=== PATIENT | male | born 1965 | race Caucasian/White ===

== ENCOUNTER → 2024-07-30 | Outpatient (CLI) | payer BC ==
[2024-07-30 16:35] VITALS: BP 153/82; PULSE 62; RESP 16; TEMP 98
== END ==
LOC: 3 N SLEEP 15:27
PROVIDERS: ATTEND Internal Medicine Critical Care Medicine
DX: G47.33 Obstructive sleep apnea (adult) (pediatric) (principal)
CPT/HCPCS: 99202

== ENCOUNTER 2024-10-20 07:47 | Inpatient (IN) | payer BC ==
--- NOTE | 2024-10-20 08:30 | ED ---
General Adult HPI - General Chief complaint: Shortness of Breath Stated complaint: Coughing up Blood Time Seen by Provider: 10/20/24 07:50 Source: patient Mode of arrival: ambulatory Limitations: no limitations - History of Present Illness Initial comments: Dictation was produced using [employer]ake dictation software. please excuse any grammatical, word or spelling errors. Chief Complaint: 59-year-old male with history of prostate disease hypertension presents to the ER for hemoptysis History of Present Illness: Patient 59-year-old male recently returned from a trip from [place] last week. Shortly after returning patient began having symptoms of cough. States that his cough is productive. Patient has been coughing profusely for the last several days. Today he had few bouts of hemoptysis. Patient is not taking anticoagulation medications. Was diagnosed with bronchitis at urgent care recently. Currently on steroids and antibiotics. Denies any history of blood clot. No lower extremity symptoms. The ROS documented in this emergency department record has been reviewed and confirmed by me. Those systems with pertinent positive or negative responses have been documented in the HPI. All other systems are other negative and/or noncontributory. - Related Data Home Medications Medication Instructions Recorded Confirmed Metoprolol Succinate [Kapspargo 100 mg PO DAILY 07/30/24 07/30/24 Sprinkle] allopurinoL 300 mg PO DAILY 07/30/24 07/30/24 lisinopriL 40 mg PO DAILY 07/30/24 07/30/24 Allergies Allergy/AdvReac Type Severity Reaction Status Date / Time No Known Allergies Allergy Verified 10/20/24 07:52 Review of Systems ROS Statement: Those systems with pertinent positive or pertinent negative responses have been documented in the HPI. ROS Other: All systems not noted in ROS Statement are negative. Past Medical History Past Medical History: Hypertension, Sleep Apnea/CPAP/BIPAP Additional Past Medical History / Comment(s): Gout History of Any Multi-Drug Resistant Organisms: None Reported Past Surgical History: Orthopedic Surgery Additional Past Surgical History / Comment(s): left knee surgery Past Psychological History: No Psychological Hx Reported Smoking Status: Never smoker Past Alcohol Use History: None Reported Past Drug Use History: None Reported - Past Family History Mother Family Medical History: Hypertension General Exam - General Exam Comments Initial Comments: PHYSICAL EXAM: General Impression: Alert and oriented x3, acute distress secondary coughing HEENT: Normocephalic atraumatic, extra-ocular movements intact, pupils equal and reactive to light bilaterally, mucous membranes moist. Cardiovascular: Heart regular rate and rhythm Chest: Able to complete full sentences, no retractions, no tachypnea Abdomen: abdomen soft, non-tender, non-distended, no organomegaly Musculoskeletal: Pulses present and equal in all extremities, no peripheral edema Motor: no focal deficits noted Neurological: CN II-XII grossly intact, no focal motor or sensory deficits noted Skin: Intact with no visualized rashes Psych: Normal affect and mood Limitations: no limitations Course Vital Signs 10/20/24 10/20/24 10/20/24 07:48 08:10 08:14 Temperature 97.9 F Pulse Rate 80 86 Respiratory 18 21 22 Rate Blood Pressure 163/77 141/74 O2 Sat by Pulse 97 98 Oximetry 10/20/24 09:48 Temperature Pulse Rate 74 Respiratory 22 Rate Blood Pressure 165/72 O2 Sat by Pulse 97 Oximetry Medical Decision Making - Medical Decision Making Was pt. sent in by a medical professional or institution (, PA, NANOTECHNICIAN, urgent care, hospital, or [facility]...) When possible be specific @ -No Did you speak to anyone other than the patient for history (EMS, parent, family, police, friend...)? What history was obtained from this source @ -No Did you review nursing and triage notes (agree or disagree)? Why? @ -I reviewed and agree with nursing and triage notes Were old charts reviewed (outside hosp., previous admission, EMS record, old EKG, old radiological studies, urgent care reports/EKG's, [facility] records)? Report findings @ -No old charts were reviewed Differential Diagnosis (chest pain, altered mental status, abdominal pain women, abdominal pain men, vaginal bleeding, musculoskeletal, weakness, fever, dyspnea, syncope, headache, dizziness, GI bleed, back pain, seizure, CVA, palpatations, mental health)? @ -Differential Dyspnea: Coronary syndrome, arrhythmia, tamponade, asthma, COPD, pulmonary embolism, pn eumonia, pneumothorax, pulmonary effusion, anaphylaxis, diabetic ketoacidosis, flailed chest, pulmonary contusion, diaphragmatic rupture, anemia, neuromuscular, this is not meant to be an all-inclusive list. EKG interpreted by me (3pts min.). @ -My EKG interpretation: Ventricular rate 79, sinus rhythm, OR 139, QRS 99, QTc 4 6. No OR prolongation, no QTC prolongation, no ST or T-wave changes noted. No old EKG for comparison overall, this EKG is unremarkable X-rays interpreted by me (1pt min.). @ -None done CT interpreted by me (1pt min.). @ -CT chest shows left lung infiltrate U/S interpreted by me (1pt. min.). @ -None done What testing was considered but not performed or refused? (CT, X-rays, U/S, labs)? Why? @ -None What meds were considered but not given or refused? Why? @ -None Was smoking cessation discussed for >3mins.? @ -No Were there social determinants of health that impacted care today? How? (Homelessness, low income, unemployed, alcoholism, drug addiction, transp ortation, low edu. Level, literacy, decrease access to med. care, senior living, rehab)? @ -No Was there de-escalation of care discussed even if they declined (Discuss DNR or withdrawal of care, Hospice)? DNR status @ -No What co-morbidities impacted this encounter? (DM, HTN, Smoking, COPD, CAD, Cancer, CVA, ARF, Chemo, Hep., AIDS, mental health diagnosis, sleep apnea, morbid obesity)? @ -None Was patient admitted / discharged? Hospital course, mention meds given and route, prescriptions, significant lab abnormalities, going to OR and other pertinent info. @ -59-year-old male presents with cough and hemoptysis. Vital signs stable. Laboratory evaluation obtained showed no leukocytosis. Rest of labs within acceptable limits. Viral testing is negative. CT of the chest with angiography was ordered. No pulmonary embolism noted however there was lung infiltrate to the left lung lazcano. Radiology interpretation was concern for atypical pneumonia including tuberculosis. Patient is afebrile with no significant constitutional symptoms along with no leukocytosis. He did not travel to an end emic area of tuberculosis. Patient nonetheless placed on airborne precautions will be admitted. Patient treated for acute community-acquired pneumonia. Patient well-appearing at the bedside Case discussed with hospitalist for admission Did you discuss the management of the patient with other professionals (professionals i.e. , PA, NANOTECHNICIAN, lab, RT, psych nurse, protective services social worker, vacuum tester cans, teacher, weapons electrical engineering officer, foster care case manager)? Give summary @ -See above Was critical care preformed (if so, how long)? @ -No Undiagnosed new problem with uncertain prognosis? @ -No Drug Therapy requiring intensive monitoring for toxicity (Heparin, Nitro, Insulin, Cardizem)? @ -No Were any procedures done? @ -No Diagnosis/symptom? Acute, or Chronic, or Acute on Chronic? Uncomplicated (without systemic symptoms) or Complicated (systemic symptoms)? @ -Acute pneumonia complicated by hemoptysis Side effects of treatment? @ -No Exacerbation, Progression, or Severe Exacerbation? @ -No Poses a threat to life or bodily function? How? (Chest pain, [place], [place], pneumonia, PE, COPD, DKA, ARF, appy, cholecystitis, CVA, Diverticulitis, Homicidal, Suicidal, threat to staff... and all critical care pts) @ -yes - Lab Data Result diagrams: 10/20/24 08:26 10/20/24 08:26 Lab Results 10/20/24 10/20/24 10/20/24 Range/Units 08:26 08:26 08:26 WBC 5.92 (4.50-10.00) 10*3/uL RBC 4.07 L (4.40-5.60) 10*6/uL Hgb 12.9 L (13.0-17.0) g/dL Hct 36.4 L (39.6-50.0) % MCV 89.4 (80.0-97.0) fL MCH 31.7 (27.0-32.0) pg MCHC 35.4 (32.0-37.0) g/dL Plt Count 132 L (140-440) 10*3/uL MPV 10.4 (9.5-12.2) fL Immature Gran % (Auto) 0.3 % Neutrophils % 68.5 % Lymphocytes % 20.1 % Monocytes % 10.6 % Eosinophils % 0.2 % Basophils % 0.3 % Immature Gran # 0.02 (0.00-0.04) 10*3/uL Neutrophils # 4.05 (1.80-7.70) 10*3/uL Lymphocytes # 1.19 (0.90-5.00) 10*3/uL Monocytes # 0.63 (0.20-1.00) 10*3/uL Eosinophils # 0.01 L (0.04-0.35) 10*3/uL Basophils # 0.02 (0.00-0.10) 10*3/uL Immature Plt Fraction 3.7 (1.1-6.1) % PT 10.1 (10.0-12.5) sec INR 0.9 (<1.2) APTT 23.7 (22.0-30.0) sec Sodium 140 (137-145) mmol/L Potassium 3.8 (3.5-5.1) mmol/L Chloride 109 H (98-107) mmol/L Carbon Dioxide 21 L (22-30) mmol/L Anion Gap 10 mmol/L BUN 21 H (9-20) mg/dL Creatinine 1.08 (0.66-1.25) mg/dL Est GFR (CKD-EPI)AfAm 85 (>60 ml/min/1.73 sqM) Est GFR (CKD-EPI)NonAf 74 (>60 ml/min/1.73 sqM) Glucose 123 H (74-99) mg/dL Calcium 8.4 (8.4-10.2) mg/dL Magnesium 1.8 (1.6-2.3) mg/dL Total Bilirubin 0.5 (0.2-1.3) mg/dL AST 26 (17-59) U/L ALT 31 (4-49) U/L Alkaline Phosphatase 77 (38-126) U/L Troponin I (0.000-0.034) ng/mL Total Protein 6.2 L (6.3-8.2) g/dL Albumin 3.8 (3.5-5.0) g/dL Influenza Type A (PCR) (Not Detectd) Influenza Type B (PCR) (Not Detectd) RSV (PCR) (Not Detectd) SARS-CoV-2 (PCR) (Not Detectd) 10/20/24 10/20/24 Range/Units 08:26 08:27 WBC (4.50-10.00) 10*3/uL RBC (4.40-5.60) 10*6/uL Hgb (13.0-17.0) g/dL Hct (39.6-50.0) % MCV (80.0-97.0) fL MCH (27.0-32.0) pg MCHC (32.0-37.0) g/dL Plt Count (140-440) 10*3/uL MPV (9.5-12.2) fL Immature Gran % (Auto) % Neutrophils % % Lymphocytes % % Monocytes % % Eosinophils % % Basophils % % Immature Gran # (0.00-0.04) 10*3/uL Neutrophils # (1.80-7.70) 10*3/uL Lymphocytes # (0.90-5.00) 10*3/uL Monocytes # (0.20-1.00) 10*3/uL Eosinophils # (0.04-0.35) 10*3/uL Basophils # (0.00-0.10) 10*3/uL Immature Plt Fraction (1.1-6.1) % PT (10.0-12.5) sec INR (<1.2) APTT (22.0-30.0) sec Sodium (137-145) mmol/L Potassium (3.5-5.1) mmol/L Chloride (98-107) mmol/L Carbon Dioxide (22-30) mmol/L Anion Gap mmol/L BUN (9-20) mg/dL Creatinine (0.66-1.25) mg/dL Est GFR (CKD-EPI)AfAm (>60 ml/min/1.73 sqM) Est GFR (CKD-EPI)NonAf (>60 ml/min/1.73 sqM) Glucose (74-99) mg/dL Calcium (8.4-10.2) mg/dL Magnesium (1.6-2.3) mg/dL Total Bilirubin (0.2-1.3) mg/dL AST (17-59) U/L ALT (4-49) U/L Alkaline Phosphatase (38-126) U/L Troponin I 0.016 (0.000-0.034) ng/mL Total Protein (6.3-8.2) g/dL Albumin (3.5-5.0) g/dL Influenza Type A (PCR) Not Detected (Not Detectd) Influenza Type B (PCR) Not Detected (Not Detectd) RSV (PCR) Not Detected (Not Detectd) SARS-CoV-2 (PCR) Not Detected (Not Detectd) Disposition Clinical Impression: Pneumonia Disposition: ADMITTED IP TO THIS HOSP Condition: Fair Referrals: Morris Ortega MD [Primary Care Provider] - 1-2 days Decision Time: 10:03
[2024-10-20 08:43] LABS: Basophils # (A) 0.02 10*3/uL (0.00-0.10); Basophils % (A) 0.3 %; Eosinophils # (A) 0.01 10*3/uL (0.04-0.35); Eosinophils % (A) 0.2 %; HCT 36.4 % (39.6-50.0); HGB 12.9 g/dL (13.0-17.0); Immature Platelet Fraction 3.7 % (1.1-6.1); Lymphocytes # (A) 1.19 10*3/uL (0.90-5.00); Lymphocytes % (A) 20.1 %; MCH 31.7 pg (27.0-32.0); MCHC 35.4 g/dL (32.0-37.0); MCV 89.4 fL (80.0-97.0); Mean Platelet Volume 10.4 fL (9.5-12.2); Monocytes # (A) 0.63 10*3/uL (0.20-1.00); Monocytes % (A) 10.6 %; Neutrophils # (A) 4.05 10*3/uL (1.80-7.70); Neutrophils % (A) 68.5 %; Platelet Count 132 10*3/uL (140-440); RBC 4.07 10*6/uL (4.40-5.60); RDW 13.9 % (11.5-14.5); WBC 5.92 10*3/uL (4.50-10.00)
[2024-10-20 08:53] LABS: ALT 31 U/L (4-49); AST 26 U/L (17-59); African American GFR (CKD) 85 (>60 ml/min/1.73 sqM); Albumin 3.8 g/dL (3.5-5.0); Alkaline Phosphatase 77 U/L (38-126); Anion Gap 10 mmol/L; Blood Urea Nitrogen 21 mg/dL (9-20); Calcium 8.4 mg/dL (8.4-10.2); Carbon Dioxide 21 mmol/L (22-30); Chloride 109 mmol/L (98-107); Glucose 123 mg/dL (74-99); Magnesium 1.8 mg/dL (1.6-2.3); Non-African American GFR(CKD) 74 (>60 ml/min/1.73 sqM); Potassium 3.8 mmol/L (3.5-5.1); Sodium 140 mmol/L (137-145); Total Bilirubin 0.5 mg/dL (0.2-1.3); Total Protein 6.2 g/dL (6.3-8.2)
[2024-10-20 09:03] LABS: INR 0.9 (<1.2); Partial Thromboplastin Time 23.7 sec (22.0-30.0); Prothrombin Time 10.1 sec (10.0-12.5)
--- NOTE | 2024-10-20 09:08 | CT ---
EXAMINATION TYPE: CT angio chest DATE OF EXAM: 10/20/2024 8:53 AM COMPARISON: None. CLINICAL INDICATION: Male, 59 years old with history of hemoptysis, recent travel, Hemoptysis, recent travel, TECHNIQUE: CT of the chest is performed on a spiral scan at 2 mm thick sections. Study is performed with intravenous contrast timed for evaluation for pulmonary embolism. This will limit additional po rtions of the evaluation. 10mm MIP images reconstructed by the technologist are reviewed on the comp uter in the coronal and sagittal planes. Contrast used:100 ml mL of Isovue 370 without and with IV Contrast, (none if empty) Oral contrast used: (none if empty) CT DLP: 729.1 mGycm, Automated exposure control for dose reduction was used. FINDINGS: No persistent filling defects are evident to suggest an acute pulmonary embolism. No mediastinal or hilar adenopathy enlarged by CT criteria is evident. The ascending aorta diameter at the level of the main pulmonary artery is 3.3 cm. The main pulmonary artery diameter at the bifurcation is 2.6 cm. There is patchy irregular infiltrate in the left upper lobe. Correlate for pneumonia. Consider atypic al pneumonia. Correlate with the recent travel history. Correlate with the travel history for possibl e TB exposure. There is some minimal subtle infiltrate scattered within the right lower lobe. Some mild lingular inf iltrate is present. Moderate coronary artery calcifications present. Limited CT sections were through the upper abdomen. Small hiatal hernia is present. IMPRESSION: 1. No acute pulmonary embolism. 2. Patchy left upper lung field infiltrate. Correlate for pneumonia. Consider atypical pneumonia. 3. Small hiatal hernia [facility], , 10/20/2024 9:06 AM
[2024-10-20 09:16] LABS: Influenza A Not Detected (Not Detectd); Influenza B Not Detected (Not Detectd); RSV Not Detected (Not Detectd)
[2024-10-20] MEDS ORDERED: PNEUMONIA PROTOCOL UTILIZED 1 EACH MISC PO PRN (10:07)
[2024-10-20] MEDS: cefTRIAXone IN SWFI 1,000 MG/10 ML SYRINGE IVP STA (11:35)
[2024-10-20] MEDS: SODIUM CHLORIDE 0.9% 1,000 ML IV SCH (11:36)
[2024-10-20] MEDS: AZITHROMYCIN 500 MG in SODIUM CHLORIDE 0.9% 250 ML IVPB STA (11:36)
--- NOTE | 2024-10-20 11:39 | P.HPIM ---
History of Present Illness H&P Date: 10/20/24 History of Presenting Illness: Patient is a very pleasant 59-year-old male with a past medical history of hypertension, BPH, gout, and obstructive sleep apnea CPAP dependent nightly. He presented to the emergency department with a chief complaint of shortness of breath and hemoptysis. Patient reports he just returned from an 8 day trip to [place] last week and shortly after returning on Monday he began developing auditory symptoms since shortness of breath. Patient reports the symptoms progressively worsened and on Monday he went to the urgent care for evaluation. Patient reports he was started on a Augmentin, steroids, and inhaler with no improvement. Patient reports he has had subjective fevers, chills, diaphoresis, and productive cough. Patient reports today that shortness of breath has worsened and has been accompanied by multiple episodes of hemoptysis so he came to the hospital for further evaluation. Patient reports that his also has similar symptoms but that her started after he developed his and has not reached the severity of his as of yet. He denies having any known exposure to TB, reports staying in a condo in [place], and visiting/exploring's a [place]. Upon arrival to our facility, patient underwent evaluation in the emergency department vital signs upon arrival show blood pressure 163/77, heart rate 80, respiratory rate 18,. Temp 97.9 F, and SpO2 of 97% on room air. EKG showing normal sinus rhythm at 79 bpm with nonspecific T wave abnormality in lateral/inferior leads. Labs completed and reviewed. CBC showing bicytopenia with hemoglobin of 12.9 and platelet count of 132. WBC count is normal at 5.92. Coagulation profile normal findings. BMP showing non-anion gap metabolic acidosis with chloride of 109, bicarb of 21, and anion gap of 10. Mild prerenal azotemia with BUN of 21. Blood glucose 123. Calcium 8.4. Magnesium 1.8. Liver profile unremarkable. Troponin 0.016. Influenza A, influenza B, RSV, and COVID PCR negative. CTA chest negative for pulmonary emboli showing patchy left upper lung field infiltrate concerning for pneumonia, likely atypical pneumonia. Review of systems: Pertinent positives and negatives as discussed in HPI, a complete review of systems was performed and all other systems are negative. Physical exam: Vital signs reviewed and stable. General: Nontoxic, no distress and appears stated age. Derm: Skin warm and dry, normal coloration for ethnicity. Head: Atraumatic, normocephalic and symmetric. Eyes: EOM's intact, no lid lag, and anicteric sclera Mouth: no lip lesions, mucus membranes moist Cardiovascular: regular rate and rhythm with normal S1S2, no murmur, positive po sterior tibial pulses bilaterally, and cap refill < 2 seconds. Lungs: Respirations even, regular, and unlabored on room air. Lungs diminished with diffuse rhonchi left upper lobe and soft expiratory wheezes bilaterally. Abdominal: soft, nontender to palpation, no guarding, no appreciable organome davie Ext: ROM intact. No gross muscle atrophy, no edema, no contractures Neuro: Speech clear, face symmetrical and CN II-XII grossly intact with no noted focal neuro deficits Psych: Alert and oriented to person, place, time, and situation. Appropriate and pleasant affect. Assessment and Plan of Care: Left upper lobe pneumonia, suspected atypical pneumonia infection -Secondary to recent travel to [place] and hemoptysis, we will need to rule out streptococcal pneumonia, staph aureus pneumonia, mycoplasma pneumonia, histoplasmosis, Legionella, and pulmonary TB -CTA chest negative for pulmonary emboli showing patchy left upper lung field infiltrate concerning for pneumonia, likely atypical pneumonia. -Airborne precautions in place and to continue pending further recommendations from pulmonology. -Order placed for Streptococcus urine antigen and histoplasmosis urine antigen to be obtained -Pulmonary consulted -Oxygenation to be administered and titrated as needed to maintain SPO2 equal to or greater than 92% -IV antibiotics with Rocephin 2 g daily and Zithromax 500 mg daily pending furt her results and recommendations from pulmonology. -Telemetry monitoring. -Monitor pulse-oximetry -Duonebs 4 times daily and as needed for SOB and/or wheezing -Incentive Spirometry -Sputum culture Hypertension -Monitor vital signs and continue daily medication regimen with metoprolol 100 mg daily,-and lisinopril 40 mg daily Gout - Although not updated on [employer] rec patient does report taking allopurinol 300 mg daily.. BPH -Patient reports recently started on Flomax 0.4 mg daily. Obstructive sleep apnea -Continue home CPAP nightly and while napping. Data and imaging reviewed: As stated above in HPI CODE STATUS: Full code DVT prophylaxis: Lovenox Discussed with: Patient, patient's , and ED physician Anticipated discharge date: Pending clinical course Anticipated discharge place: Home Patient was seen independently by Nurse Practitioner. This document was prepared using [employer] dictation software. Please allow for errors in shoe singer while rare they do occur. Quincy Cui NP rendered care for this patient independently, reviewed the findings and plan as documented in the note above and agree with plan. I did not physically speak with or examine the patient on this date. Past Medical History Past Medical History: Hypertension, Sleep Apnea/CPAP/BIPAP Additional Past Medical History / Comment(s): Gout History of Any Multi-Drug Resistant Organisms: None Reported Past Surgical History: Orthopedic Surgery Additional Past Surgical History / Comment(s): left knee surgery Past Psychological History: No Psychological Hx Reported Smoking Status: Never smoker Past Alcohol Use History: None Reported Past Drug Use History: None Reported - Past Family History Mother Family Medical History: Hypertension Medications and Allergies Home Medications Medication Instructions Recorded Confirmed Type lisinopriL 40 mg PO DAILY 07/30/24 10/20/24 History Albuterol Inhaler [Ventolin Hfa 2 puff INHALATION RT-Q4H PRN 10/20/24 10/20/24 History Inhaler] Amoxic-Pot Clav 875-125Mg 1 tab PO Q12HR 10/20/24 10/20/24 History [Augmentin 875-125] Ergocalciferol (Vitamin D2) 1,250 mcg PO SA 10/20/24 10/20/24 History [Drisdol (GEQ) 1,250 MCG (50,000 IU)] Metoprolol Succinate (ER) [Toprol 100 mg PO DAILY 10/20/24 10/20/24 History Xl] methylPREDNISolone Dose Pack See Taper PO DIRECTED 10/20/24 10/20/24 History [Medrol Dose Pack] Allergies Allergy/AdvReac Type Severity Reaction Status Date / Time No Known Allergies Allergy Verified 10/20/24 12:00 Physical Exam Vitals: Vital Signs Temp Pulse Resp BP Pulse Ox 10/20/24 09:48 74 22 165/72 97 10/20/24 08:14 22 10/20/24 08:10 86 21 141/74 98 10/20/24 07:48 97.9 F 80 18 163/77 97 Intake and Output 10/19/24 10/20/24 10/20/24 22:59 06:59 14:59 Other: Weight 122.47 kg Results CBC & Chem 7: 10/20/24 08:26 10/20/24 08:26 Labs: Abnormal Lab Results - Last 24 Hours (Table) 10/20/24 10/20/24 Range/Units 08:26 08:26 RBC 4.07 L (4.40-5.60) 10*6/uL Hgb 12.9 L (13.0-17.0) g/dL Hct 36.4 L (39.6-50.0) % Plt Count 132 L (140-440) 10*3/uL Eosinophils # 0.01 L (0.04-0.35) 10*3/uL Chloride 109 H (98-107) mmol/L Carbon Dioxide 21 L (22-30) mmol/L BUN 21 H (9-20) mg/dL Glucose 123 H (74-99) mg/dL Total Protein 6.2 L (6.3-8.2) g/dL
[2024-10-20] MEDS ORDERED: IPRATROPIUM-ALBUTEROL 3 ML NEB INHALATION PRN (11:40)
[2024-10-20] MEDS: IPRATROPIUM-ALBUTEROL 3 ML NEB INHALATION SCH (12:19)
--- NOTE | 2024-10-20 12:51 | P.CNPUL ---
History of Present Illness Consult date: 10/20/24 Requesting physician: Dylan Matos Reason for consult: dyspnea, cough, abnormal CXR/CT Chief complaint: Shortness of breath, cough, congestion History of present illness: This is a very pleasant 59-year-old male patient with a known history of gout, hypertension, obesity, obstructive sleep apnea on CPAP. 2 to 3 weeks ago the patient developed a dry nonproductive cough and felt it may be due to the increased dose of his lisinopril. After that he traveled to [facility] for [address] days[address] On the way home he had a layover in [place] where he spent the night in a hotel prior to arriving in [place]. Over the past week he had noted increasing shortness of breath, cough and congestion. He did have some night sweats. No nausea, vomiting or diarrhea. No sick contacts. He was given a Medrol Dosepak and Augmentin in the outpatient setting without much improvement. He presented to the emergency room this morning. CT angiogram ruled out pulmonary embolism. There is a patchy left upper lobe lung field infiltrate suspicious for pneumonia. White count 5.9. Hemoglobin 12.9. Platelets 132. Sodium 140. Potassium 3.8. Bicarb 21. BUN 21. Creatinine 1.08. Glucose 123. Troponins negative x 2. Viral screen negative for influenza A/B, RSV, COVID. He is seen today in consultation on the regular medical floor. He is currently on AFB precautions, secondary to a comment by the radiologist suggesting possible TB exposure while traveling. No previous history of tuberculosis. He is awake and alert in no acute distress. Maintaining good O2 saturations in the 90s on room air oxygen. Afebrile. Hemodynamically stable. He does have a productive cough of dark brown sputum some blood-tinged sputum. Review of Systems REVIEW OF SYSTEMS: CONSTITUTIONAL: Denies any recent significant weight loss or weight gain. EYES: Denies change in vision. EARS, NOSE, MOUTH, THROAT: Denies headaches, denies sore throat. CARDIOVASCULAR: Denies chest pain, palpitations or syncopal episodes. RESPIRATORY: Positive for shortness of breath, cough, congestion and hemoptysis. GASTROINTESTINAL: Denies change in appetite, denies abdominal pain GENITOURINARY: Denies hematuria, denies infections. MUSKULOSKELETAL: Denies pain, denies swelling. INTEGUMENTARY: Denies rash, denies eczema. NEUROLOGICAL: Denies recent memory loss, no recent seizure activity. PSYCHIATRIC: Denies anxiety, denies depression. HEMATOLOGIC/LYMPHATIC: Denies anemia, denies enlarged lymph nodes. Past Medical History Past Medical History: Hypertension, Sleep Apnea/CPAP/BIPAP Additional Past Medical History / Comment(s): Gout History of Any Multi-Drug Resistant Organisms: None Reported Past Surgical History: Orthopedic Surgery Additional Past Surgical History / Comment(s): left knee surgery Past Psychological History: No Psychological Hx Reported Smoking Status: Never smoker Past Alcohol Use History: None Reported Past Drug Use History: None Reported - Past Family History Mother Family Medical History: Hypertension Medications and Allergies Home Medications Medication Instructions Recorded Confirmed Type lisinopriL 40 mg PO DAILY 07/30/24 10/20/24 History Albuterol Inhaler [Ventolin Hfa 2 puff INHALATION RT-Q4H PRN 10/20/24 10/20/24 H istory Inhaler] Amoxic-Pot Clav 875-125Mg 1 tab PO Q12HR 10/20/24 10/20/24 History [Augmentin 875-125] Ergocalciferol (Vitamin D2) 1,250 mcg PO SA 10/20/24 10/20/24 History [Drisdol (GEQ) 1,250 MCG (50,000 IU)] Metoprolol Succinate (ER) [Toprol 100 mg PO DAILY 10/20/24 10/20/24 History Xl] methylPREDNISolone Dose Pack See Taper PO DIRECTED 10/20/24 10/20/24 History [Medrol Dose Pack] Allergies Allergy/AdvReac Type Severity Reaction Status Date / Time No Known Allergies Allergy Verified 10/20/24 12:00 Physical Exam Vitals: Vital Signs Temp Pulse Resp BP Pulse Ox 10/20/24 11:49 64 20 160/80 96 10/20/24 09:48 74 22 165/72 97 10/20/24 08:14 22 10/20/24 08:10 86 21 141/74 98 10/20/24 07:48 97.9 F 80 18 163/77 97 Intake and Output 10/19/24 10/20/24 10/20/24 22:59 06:59 14:59 Other: Weight 122.47 kg GENERAL EXAM: Alert, active, pleasant, obese 59-year-old male, on room air oxygen, comfortable in no apparent distress. HEAD: Normocephalic. EYES: Normal reaction of pupils, equal size. NOSE: Clear with pink turbinates. THROAT: No erythema or exudates. NECK: No masses, no JVD. CHEST: No chest wall deformity. LUNGS: Equal air entry with few scattered rhonchi over the right lung. CVS: S1 and S2 normal with no audible murmur, regular rhythm. ABDOMEN: No hepatosplenomegaly, normal bowel sounds, no guarding or rigidity. SPINE: No scoliosis or deformity SKIN: No rashes CENTRAL NERVOUS SYSTEM: No focal deficits, tone is normal in all 4 extremities. EXTREMITIES: There is no peripheral edema. No clubbing, no cyanosis. Peripheral pulses are intact. Results - Laboratory Findings CBC and BMP: 10/20/24 08:10/20/24 08:26 PT/INR, D-dimer PT 10.1 sec (10.0-12.5) 10/20/24 08: INR 0.9 (<1.2) 10/20/24 08:26 Abnormal lab findings: Abnormal Labs 10/20/24 10/20/24 08:26 08:26 RBC 4.07 L Hgb 12.9 L Hct 36.4 L Plt Count 132 L Eosinophils # 0.01 L Chloride 109 H Carbon Dioxide 21 L BUN 21 H Glucose 123 H Total Protein 6.2 L - Diagnostic Findings CT scan - chest: image reviewed Assessment and Plan Assessment: Acute left upper lobe community-acquired pneumonia however recently traveled to [facility] and other sources are under investigation Recent travel to [facility], spent 1 night in [place] prior to arriving back in [place] Hypertension Gout Obstructive sleep apnea Obesity Lifelong non-smoker Plan: The patient was seen and evaluated CT angiogram, labs and medications reviewed Continue ceftriaxone and azithromycin Check for Legionella antigen Check mycoplasma IgM Add albuterol HFA as needed Check a sputum culture Discontinue DuoNeb ventilations Lovenox for DVT prophylaxis Currently stable on room air oxygen To remain in AFB precautions for now We will continue to follow and make further recommendations based on his clinical status I have personally seen and examined the patient, performed the documentation and the assessment and plan as written. Number of minutes spent on the visit: 20 Dictation was produced using [employer] software. Please excuse any grammatical, word or spelling errors. Time with Patient: Greater than 30
[2024-10-20] MEDS: methylPREDNISolone 4 MG TAB TAPER PO SCH (14:41)
[2024-10-20] MEDS: lisinopriL 20 MG TAB PO STA (15:31)
[2024-10-20] MEDS: TAMSULOSIN 0.4 MG CAP.ER.24H PO SCH (17:35)
[2024-10-21] MEDS: lisinopriL 20 MG TAB PO SCH (08:27)
[2024-10-21] MEDS: METOPROLOL SUCCINATE (ER) 100 MG TAB.ER.24H PO SCH (08:27)
[2024-10-21] MEDS: allopurinoL 300 MG TAB PO SCH (08:28)
[2024-10-21] MEDS: AZITHROMYCIN 500 MG TAB PO SCH (08:28)
[2024-10-21] MEDS: ENOXAPARIN 40 MG/0.4 ML SYRINGE SQ SCH (08:28)
[2024-10-21] MEDS ORDERED: HEPARIN SODIUM 1,000 UN/ML (10ML VL) IV PRN (08:45)
[2024-10-21] MEDS ORDERED: DILTIAZEM 5 MG/ML 5 ML VIAL IVP STA (08:45)
[2024-10-21] MEDS ORDERED: DILTIAZEM 125 MG in DEXTROSE 5% IN WATER 100 ML IV SCH (08:45)
--- NOTE | 2024-10-21 09:10 | XR ---
EXAMINATION TYPE: XR chest 1V DATE OF EXAM: 10/21/2024 6:42 AM COMPARISON: None. CLINICAL INDICATION: Male, 59 years old with history of pneumonia, TECHNIQUE: XR chest 1V view(s) obtained. FINDINGS: The heart size is normal. The pulmonary vasculature is normal. Some minimal tenting along the left cardiac apex may be present. Correlate for atelectasis. There is a left upper lobe infiltrate. Correlate for pneumonia. IMPRESSION: 1. Left upper lobe infiltrate. Correlate for pneumonia. Follow-up recommended. [facility], , 10/21/2024 9:07 AM
[2024-10-21 09:18] LABS: Basophils # (A) 0.02 10*3/uL (0.00-0.10); Basophils % (A) 0.4 %; Eosinophils # (A) 0.01 10*3/uL (0.04-0.35); Eosinophils % (A) 0.2 %; HCT 37.6 % (39.6-50.0); HGB 13.4 g/dL (13.0-17.0); Immature Platelet Fraction 3.1 % (1.1-6.1); Lymphocytes # (A) 0.93 10*3/uL (0.90-5.00); Lymphocytes % (A) 16.4 %; MCH 32.2 pg (27.0-32.0); MCHC 35.6 g/dL (32.0-37.0); MCV 90.4 fL (80.0-97.0); Mean Platelet Volume 10.5 fL (9.5-12.2); Monocytes # (A) 0.69 10*3/uL (0.20-1.00); Monocytes % (A) 12.2 %; Neutrophils % (A) 70.6 %; Platelet Count 137 10*3/uL (140-440); RBC 4.16 10*6/uL (4.40-5.60); RDW 13.9 % (11.5-14.5); WBC 5.66 10*3/uL (4.50-10.00)
[2024-10-21] MEDS: METOPROLOL TARTRATE 5 MG/5 ML VIAL IVP SCH (09:20)
[2024-10-21 09:29] LABS: ALT 38 U/L (10-49); AST 26 U/L (14-35); Albumin 3.9 g/dL (3.8-4.9); Albumin/Globulin Ratio 2.05 Ratio (1.60-3.17); Alkaline Phosphatase 88 U/L (41-126); BUN/Creat Ratio 15.64 Ratio (12.00-20.00); Blood Urea Nitrogen 17.2 mg/dL (9.0-27.0); Calcium 8.2 mg/dL (8.7-10.3); Carbon Dioxide 25.7 mmol/L (21.6-31.8); Chloride 106 mmol/L (96-109); Globulin 1.9 g/dL (1.6-3.3); Glucose 98 mg/dL (70-110); Magnesium 1.9 mg/dL (1.5-2.4); Sodium 141 mmol/L (135-145); Total Bilirubin 0.5 mg/dL (0.3-1.2); Total Protein 5.8 g/dL (6.2-8.2)
[2024-10-21 09:29] LABS: INR 0.9 (<1.2); Partial Thromboplastin Time 24.4 sec (22.0-30.0); Prothrombin Time 10.3 sec (10.0-12.5)
[2024-10-21 09:36] LABS: HCT 36.8 % (39.6-50.0); HGB 12.6 g/dL (13.0-17.0); MCH 31.4 pg (27.0-32.0); MCHC 34.2 g/dL (32.0-37.0); MCV 91.8 FL (80.0-97.0); Mean Platelet Volume 10.5 FL (9.5-12.2); NRBC Per 100 WBC 0 X 10*3/uL (0.00-0.01); Platelet Count 136 X 10*3/uL (140-440); RBC 4.01 X 10*6/uL (4.40-5.60); RDW 13.9 % (11.5-14.5); WBC 6.27 X 10*3/uL (4.50-10.00)
[2024-10-21] MEDS: METOPROLOL TARTRATE 50 MG TAB PO STA (10:21)
[2024-10-21] MEDS: HEPARIN SODIUM 1,000 UN/ML (10ML VL) IV ONE (10:21)
[2024-10-21] MEDS: HEPARIN SOD,PORK IN 0.45% NACL 25,000 UNIT in 0.45% NACL 1 250ML.BAG IV SCH (10:24)
--- NOTE | 2024-10-21 12:17 | P.PN ---
Subjective Progress Note Date: 10/21/24 Principal diagnosis: Acute left upper lobe pneumonia This is a very pleasant 59-year-old male patient with a known history of gout, hypertension, obesity, obstructive sleep apnea on CPAP. 2 to 3 weeks ago the patient developed a dry nonproductive cough and felt it may be due to the increased dose of his lisinopril. After that he traveled to [facility] for 8 days. On the way home he had a layover in [place] where he spent the night in a hotel prior to arriving in [place]. Over the past week he had noted increasing shortness of breath, cough and congestion. He did have some night sweats. No nausea, vomiting or diarrhea. No sick contacts. He was given a Medrol Dosepak and Augmentin in the outpatient setting without much improvement. He presented to the emergency room this morning. CT angiogram ruled out pulmonary embolism. There is a patchy left upper lobe lung field infiltrate suspicious for pneumonia. White count 5.9. Hemoglobin 12.9. Platelets 132. Sodium 140. Potassium 3.8. Bicarb 21. BUN 21. Creatinine 1.08. Glucose 123. Troponins negative x 2. Viral screen negative for influenza A/B, RSV, COVID. He is seen today in consultation on the regular medical floor. He is currently on AFB precautions, secondary to a comment by the radiologist suggesting possible TB exposure while traveling. No previous history of tuberculosis. He is awake and alert in no acute distress. Maintaining good O2 saturations in the 90s on room air oxygen. Afebrile. Hemodynamically stable. He does have a productive cough of dark brown sputum some blood-tinged sputum. Seen today on 10/21/2024, patient is comfortable, not in any distress continues to have some productive cough with thick green phlegm. Gram stain is nondiagnostic so far, patient is again feeling better, not in distress no fever no chills no hemoptysis, no chest pain. Urine Legionella antigen is negative WBC count today is 5.6 hemoglobin 13.4 basic metabolic profile is normal renal p rofile is normal. Liver enzymes are normal, chest x-ray today showed significant left upper lobe infiltrate. Consistent with pneumonia. Objective - Vital Signs Vital signs: Vital Signs Temp 99.0 F 10/21/24 07:55 Pulse 144 H 10/21/24 09:30 Resp 17 10/21/24 07:55 BP 134/72 10/21/24 09:30 Pulse Ox 93 L 10/21/24 07:55 FiO2 Intake & Output 10/20/24 10/21/24 10/21/24 18:59 06:59 18:59 Weight 122.47 kg Other: # Voids 2 2 - Exam GENERAL EXAM: Revealed 59-year-old white male in no distress HEAD: Normocephalic. EYES: Normal reaction of pupils, equal size. NOSE: Clear with pink turbinates. THROAT: No erythema or exudates. NECK: No masses, no JVD. CHEST: No chest wall deformity. LUNGS: Clear bilaterally no rhonchi no wheezes CVS: S1 and S2 normal with no audible murmur, regular rhythm. ABDOMEN: No hepatosplenomegaly, normal bowel sounds, no guarding or rigidity. SKIN: No rashes CENTRAL NERVOUS SYSTEM: Alert and oriented x 3 no focal deficit EXTREMITIES: No clubbing edema or cyanosis. - Labs CBC & Chem 7: 10/21/24 09:05 10/21/24 05:17 Labs: Abnormal Lab Results - Last 24 Hours (Table) 10/21/24 10/21/24 10/21/24 Range/Units 05:17 05:17 09:05 RBC 4.01 L 4.16 L (4.40-5.60) X 10*6/uL Hgb 12.6 L (13.0-17.0) g/dL Hct 36.8 L 37.6 L (39.6-50.0) % MCH 32.2 H (27.0-32.0) pg Plt Count 136 L 137 L (140-440) X 10*3/uL Eosinophils # 0.01 L (0.04-0.35) 10*3/uL Calcium 8.2 L (8.7-10.3) mg/dL Total Protein 5.8 L (6.2-8.2) g/dL Microbiology - Last 24 Hours (Table) 10/20/24 13:49 Gram Stain - Preliminary Sputum Assessment and Plan Assessment: Impression: Acute community-acquired left upper lobe pneumonia, however considering his re cent travel to [facility] patient is being worked up for possible TB infection. Benign essential hypertension Gout Obstructive sleep apnea syndrome Lifelong non-smoker Obesity Recommendation: Continue present course of antibiotics Sputum Gram stain was noted AFB stain is pending Legionella antigen is negative and mycoplasma IgM is pending Continue albuterol HFA Continue DVT prophylaxis Continue AFB precautions for now, the index of suspicion for AFB is extremely low May or may not require bronchoscopy and BAL of left upper lobe Will continue to follow Time with Patient: Less than 30
[2024-10-21] MEDS: DILTIAZEM 125 MG in DEXTROSE 5% IN WATER 100 ML IV SCH (14:47)
[2024-10-21] MEDS: DILTIAZEM 5 MG/ML 5 ML VIAL IVP STA (14:47)
--- NOTE | 2024-10-21 15:26 | P.PN ---
Subjective Progress Note Date: 10/21/24 Hospital Course: Patient is a very pleasant 59-year-old male with a past medical history of hypertension, BPH, gout, colon cancer s/p resection, and obstructive sleep apnea CPAP dependent nightly. He presented to the emergency department with a chief complaint of shortness of breath and hemoptysis. Patient reports he just returned from an 8 day trip to [facility] last week and shortly after returning on Monday he began developing auditory symptoms since shortness of breath. Patie nt reports the symptoms progressively worsened and on Monday he went to the urgent care for evaluation. Patient reports he was started on a Augmentin, steroids, and inhaler with no improvement. Patient reports he has had subjective fevers, chills, diaphoresis, and productive cough. Patient reports today that shortness of breath has worsened and has been accompanied by multiple episodes of hemoptysis so he came to the hospital for further evaluation. Patient reports that his also has similar symptoms but that her started after he developed his and has not reached the severity of his as of yet. He denies having any known exposure to TB, reports staying in a condo in [facility], and visiting/exploring's [employer]. Upon arrival to our facility, patient underwent evaluation in the emergency department vital signs upon arrival show blood pressure 163/77, heart rate 80, respiratory rate 18,. Temp 97.9 F, and SpO2 of 97% on room air. EKG showing normal sinus rhythm at 79 bpm with nonspecific T wave abnormality in lateral/inferior leads. Labs completed and reviewed. CBC showing bicytopenia with hemoglobin of 12.9 and platelet count of 132. WBC count is normal at 5.92. Coagulation profile normal findings. BMP showing non-anion gap metabolic acidosis with chloride of 109, bicarb of 21, and anion gap of 10. Mild prerenal azotemia with BUN of 21. Blood glucose 123. C alcium 8.4. Magnesium 1.8. Liver profile unremarkable. Troponin 0.016. Influenza A, influenza B, RSV, and COVID PCR negative. CTA chest negative for pulmonary emboli showing patchy left upper lung field infiltrate concerning for pneumonia, likely atypical pneumonia. Physical exam: Patient seen and fully evaluated at bedside this morning. He is currently in A- fib RVR and asymptomatic denying any chest pain, palpitations, dizziness, lightheadedness, or experiencing any numbness/tingling/weakness in his extremities. He reports continued mild shortness of breath and coarse cough and now producing thick green-colored phlegm. Vital signs reviewed and stable. General: Nontoxic, no distress and appears stated age. Derm: Skin warm and dry, normal coloration for ethnicity. Head: Atraumatic, normocephalic and symmetric. Eyes: EOM's intact, no lid lag, and anicteric sclera Mouth: no lip lesions, mucus membranes moist Cardiovascular: Irregularly irregular, no murmur, positive posterior tibial pulses bilaterally, and cap refill < 2 seconds. Lungs: Respirations even, regular, and unlabored on room air. Lungs diminished with diffuse rhonchi left upper lobe and soft expiratory wheezes bilaterally. Abdominal: soft, nontender to palpation, no guarding, no appreciable organomegaly Ext: ROM intact. No gross muscle atrophy, no edema, no contractures Neuro: Speech clear, face symmetrical and CN II-XII grossly intact with no noted focal neuro deficits Psych: Alert and oriented to person, place, time, and situation. Appropriate and pleasant affect. Assessment and Plan of Care: Left upper lobe pneumonia, suspected atypical pneumonia infection Thrombocytopenia, likely reactive secondary to above -Secondary to recent travel to [facility] and hemoptysis, we will need to rule out streptococcal pneumonia, staph aureus pneumonia, mycoplasma pneumonia, histoplasmosis, Legionella, and pulmonary TB -CTA chest negative for pulmonary emboli showing patchy left upper lung field infiltrate concerning for pneumonia, likely atypical pneumonia. Chest x-ray showing left upper lobe infiltrate -Continue Airborne precautions pending further recommendations from pulmonology. -Pulmonary following -Oxygenation to be administered and titrated as needed to maintain SPO2 equal to or greater than 92% -IV antibiotics with Rocephin 2 g daily and Zithromax 500 mg daily pending further results and recommendations from pulmonology. -Telemetry monitoring. -Monitor pulse-oximetry -Duonebs 4 times daily and as needed for SOB and/or wheezing -Incentive Spirometry -Sputum culture pending, urine Legionella negative. Awaiting results for Stre ptococcus urine antigen, histoplasmosis urine antigen, and mycoplasma antibody. New onset atrial fibrillation with RVR - Patient currently maintaining RVR with a rate of 150s, will start patient on low intensity heparin infusion, may not need long-term anticoagulation as CHA2DS 2-VASc score is 1. - Increased metoprolol to 150 mg daily and patien to be given Cardizem bolus followed by infusion. - Echocardiogram to be completed. - Consult placed to cardiology - Patient to remain on continuous telemetry monitoring. - Order placed for TSH and upon follow-up normal findings at 2.530. Hypertension -Monitor vital signs and continue daily medication regimen with metoprolol 150 mg daily,and lisinopril 40 mg daily Gout - Patient reports recently started on allopurinol 300 mg daily.. BPH -Patient reports recently started on Flomax 0.4 mg daily. Obstructive sleep apnea -Continue home CPAP nightly and while napping. Data and imaging reviewed: Morning labs reviewed. CBC showing thrombocytopenia with platelet count of 137. Coagulation profile normal findings. BMP unremarkable. Blood glucose 98. Magnesium 1.9. Liver profile normal findings. Troponin was trended resulting at 0.016, 0.015, and less than 0.012. TSH normal findings at 2.530. -Urine Legionella negative. Morning chest x-ray completed showing left upper lobe infiltrate. EKG completed this morning showing atrial fibrillation with RVR at 146 bpm with moderate T wave inversion/abnormalities in anterior/lateral leads II, III, aVL,V3, V4, V5 and V6. -Vital signs reviewed. Morning blood pressure 149/65, heart rate 72, respiratory rate 17, temp 99.3 F, and SpO2 CPAP. Heart rate increasing to 150s, EKG completed as stated above confirming A-fib RVR. CODE STATUS: Full code DVT prophylaxis: Low intensity heparin infusion Discussed with: Patient, RN, and automobile painter Anticipated discharge date: Pending clinical course Anticipated discharge place: Home Patient was seen independently by Nurse Practitioner. This document was prepared using [employer] dictation software. Please allow for errors in chemist steroids while rare they do occur. Quincy Cui NP rendered care for this patient independently, reviewed the findings and plan as documented in the note above and agree with plan. I did not physically speak with or examine the patient on this date. Objective - Vital Signs Vital signs: Vital Signs Temp 98.9 F 10/21/24 02:00 Pulse 70 10/21/24 05:00 Resp 18 10/21/24 05:00 BP 108/68 10/21/24 05:00 Pulse Ox 95 10/21/24 05:00 FiO2 Intake & Output 10/20/24 10/21/24 10/21/24 18:59 06:59 18:59 Weight 122.47 kg Other: # Voids 2 2 - Labs CBC & Chem 7: 10/21/24 09:05 10/21/24 05:17 Labs: Microbiology - Last 24 Hours (Table) 10/20/24 13:49 Gram Stain - Preliminary Sputum
--- NOTE | 2024-10-21 22:37 | P.CONS ---
History of Present Illness - Reason for Consult Consult date: 10/21/24 Pneumonia with hemoptysis recent travel question TB Requesting physician: Quincy Cui - Chief Complaint Shortness of breath and cough x few days - History of Present Illness Patient is a 59-year-old male with a past medical history significant for hypertension sleep apnea in this patient who recently came back from a trip to [facility] where he stayed for 8 days patient started having problem with increasing shortness of breath and cough and chest congestion that started last week on Monday patient also have some night sweats or high-grade fever patient has been evaluated in the outpatient setting has been treated with Medrol Dosepak and Augmentin however the patient had an improvement and subsequently presented to the hospital for evaluation of increasing shortness of breath along with a cough congestion the cough has been moderate intensity and the patient will bring up some sputum with some blood streaking patient denies having any nausea no vomiting no choking therefore no abdominal pain or any diarrhea on presentation to the hospital the patient was afebrile and no fever have been recorded subsequently patient was not tachycardic or hypotensive not hypoxic no need for supplemental oxygen patient did have a white count of 5.92 creatinine 1.08 electrolytes are normal liver enzymes normal influenza RSV COVID antigen antigen was negative patient did have a CT angiogram of the chest on presentation to the hospital that was negative for PE however there was a patchy irregular infiltrate in the left upper lobe with the radiologist put the di agnosis of TB patient has been put in the negative pressure ulceration over the last 2 days infectious disease was consulted today for further management, patient denies any exposure to TB in the family or at workplace and never have a skin test for TB and did not have any respiratory symptoms except about 4 to 5 days ago no weight loss Review of Systems Positive point and negatives has been mentioned in the HPI, complete review of systems was performed and all other systems are negative Past Medical History Past Medical History: Hypertension, Sleep Apnea/CPAP/BIPAP Additional Past Medical History / Comment(s): Gout History of Any Multi-Drug Resistant Organisms: None Reported Past Surgical History: Orthopedic Surgery Additional Past Surgical History / Comment(s): left knee surgery Past Anesthesia/Blood Transfusion Reactions: No Reported Reaction Past Psychological History: No Psychological Hx Reported Smoking Status: Never smoker Past Alcohol Use History: None Reported Past Drug Use History: None Reported - Past Family History Mother Family Medical History: Hypertension Medications and Allergies Home Medications Medication Instructions Recorded Confirmed Type lisinopriL 40 mg PO DAILY 07/30/24 10/20/24 History Albuterol Inhaler [Ventolin Hfa 2 puff INHALATION RT-Q4H PRN 10/20/24 10/20/24 History Inhaler] Amoxic-Pot Clav 875-125Mg 1 tab PO Q12HR 10/20/24 10/20/24 History [Augmentin 875-125] Ergocalciferol (Vitamin D2) 1,250 mcg PO SA 10/20/24 10/20/24 History [Drisdol (GEQ) 1,250 MCG (50,000 IU)] Metoprolol Succinate (ER) [Toprol 100 mg PO DAILY 10/20/24 10/20/24 History Xl] methylPREDNISolone Dose Pack See Taper PO DIRECTED 10/20/24 10/20/24 History [Medrol Dose Pack] Allergies Allergy/AdvReac Type Severity Reaction Status Date / Time No Known Allergies Allergy Verified 10/20/24 12:00 Physical Exam Vitals: Vital Signs Temp Pulse Resp BP Pulse Ox 10/21/24 15:20 133 H 18 128/74 97 10/21/24 09:30 144 H 134/72 10/21/24 08:28 150 H 10/21/24 07:55 99.0 F 72 17 149/65 93 L 10/21/24 05:00 70 18 108/68 95 10/21/24 02:00 98.9 F 70 137/80 96 10/20/24 21:52 68 16 10/20/24 20:00 98.5 F 65 18 121/65 95 Intake and Output 10/21/24 10/21/24 10/21/24 06:59 14:59 22:59 Other: # Voids 2 GENERAL DESCRIPTION: Middle-age male lying in bed, no distress. No tachypnea or accessory muscle of respiration use. HEENT: Shows Pallor , no scleral icterus. Oral mucous membrane is dry. No pharyngeal erythema or thrush NECK: Trachea central, no thyromegaly. LUNGS: Unlabored breathing. Decreased breath sound at bases no wheeze HEART: S1, S2, regular rate and rhythm. No loud murmur ABDOMEN: Soft, no tenderness , guarding or rigidity, no organomegaly EXTREMITIES: No edema of feet. SKIN: No rash, no masses palpable. NEUROLOGICAL: The patient is awake, alert, oriented x3, mood and affect normal. Results CBC & Chem 7: 10/21/24 09:05 10/21/24 05:17 Labs: Abnormal Lab Results - Last 24 Hours (Table) 10/21/24 10/21/24 10/21/24 Range/Units 05:17 05:17 09:05 RBC 4.01 L 4.16 L (4.40-5.60) X 10*6/uL Hgb 12.6 L (13.0-17.0) g/dL Hct 36.8 L 37.6 L (39.6-50.0) % MCH 32.2 H (27.0-32.0) pg Plt Count 136 L 137 L (140-440) X 10*3/uL Eosinophils # 0.01 L (0.04-0.35) 10*3/uL APTT (22.0-30.0) sec Calcium 8.2 L (8.7-10.3) mg/dL Total Protein 5.8 L (6.2-8.2) g/dL 10/21/24 Range/Units 15:04 RBC (4.40-5.60) X 10*6/uL Hgb (13.0-17.0) g/dL Hct (39.6-50.0) % MCH (27.0-32.0) pg Plt Count (140-440) X 10*3/uL Eosinophils # (0.04-0.35) 10*3/uL APTT 32.0 H (22.0-30.0) sec Calcium (8.7-10.3) mg/dL Total Protein (6.2-8.2) g/dL Microbiology - Last 24 Hours (Table) 10/20/24 13:49 Gram Stain - Preliminary Sputum Assessment and Plan (1) Pneumonia Current Visit: Yes Status: Acute Code(s): J18.9 - PNEUMONIA, UNSPECIFIED ORGANISM SNOMED Code(s): 859960922 Plan: 1patient presented to hospital with shortness of breath cough congestion bringing up some sputum which is blood-streaked with evidence of left upper lobe pneumonia on the CT in this patient symptom has been going on for less than a week he did have recent history of travel to [facility] however with such small duration of symptoms and no evidence of any cavitation on the CT clinically doubt TB and more likely dealing with a regular community-acquired pneumonia 2to confirm the diagnosis will obtain sputum AFB daily x 3 and will check QuantiFERON TB Gold test 3sputum culture have been obtained results will be followed. 4will treat with Rocephin and Zithromax while waiting for the workup to be completed We will follow on clinical condition and cultures to further adjust medication if needed Thank you for this consultation we will follow the patient along with you Dictation was produced using [employer] dictation software. please excuse any grammatical, word or spelling errors. Time with Patient: Greater than 30
[2024-10-22 02:45] LABS: Basophils # (A) 0.01 10*3/uL (0.00-0.10); Basophils % (A) 0.3 %; HCT 40.1 % (39.6-50.0); HGB 13.8 g/dL (13.0-17.0); Lymphocytes # (A) 1.18 10*3/uL (0.90-5.00); Lymphocytes % (A) 32.4 %; MCH 31.1 pg (27.0-32.0); MCHC 34.4 g/dL (32.0-37.0); MCV 90.3 fL (80.0-97.0); Mean Platelet Volume 9.9 fL (9.5-12.2); Monocytes # (A) 0.69 10*3/uL (0.20-1.00); Neutrophils # (A) 1.75 10*3/uL (1.80-7.70); Platelet Count 136 10*3/uL (140-440); RBC 4.44 10*6/uL (4.40-5.60); RDW 13.6 % (11.5-14.5); WBC 3.64 10*3/uL (4.50-10.00)
[2024-10-22 03:12] LABS: INR 0.9 (<1.2); Prothrombin Time 10.6 sec (10.0-12.5)
[2024-10-22] MEDS: METOPROLOL SUCCINATE (ER) 50 MG TAB.ER.24H PO SCH (08:31)
--- NOTE | 2024-10-22 10:44 | P.CRDCN ---
History of Present Illness History of present illness: HISTORY OF PRESENT ILLNESS: This is a 59-year-old male with a past medical history significant for hypertension and obesity. Patient does not follow with a discovery manager. We have been asked to see the patient in consultation for A-fib with RVR. Patient examined at the bedside. Patient presented to the hospital with a chief complaint of shortness of breath and hemoptysis. Patient is currently in airborne isolation to rule out TB. Patient went into A-fib with RVR yesterday. He is currently on a Cardizem drip at 15 mg an hour. He remains in atrial fibrillation with RVR at the time of examination. Patient denies any known history of atrial fibrillation. DIAGNOSTICS: - EKG reveals A-fib with RVR. - Chest xray left upper lobe infiltrate. Correlate for pneumonia.. - Laboratory data: WBC 3.64. Hemoglobin 13.8. Platelet count 136. Sodium 141. Potassium 4.0. BUN 17. Creatinine 1.1. TSH 2.530 - Current home cardiac medications include lisinopril 40 mg daily and metoprolol succinate 100 mg daily. - No previous echocardiogram, stress test, or cardiac catheterization available in EMR for review REVIEW OF SYSTEMS: At the time of my exam: CONSTITUTIONAL: Denies fever or chills. HEENT: Denies blurred vision, vision changes, or eye pain. Denies hemoptysis CARDIOVASCULAR: Denies chest pain. Denies orthopnea. Denies PND. Denies palpitations RESPIRATORY: + shortness of breath. GASTROINTESTINAL: Denies abdominal pain. Denies nausea or vomiting. HEMATOLOGIC: Denies bleeding disorders. GENITOURINARY: Denies any blood in urine. SKIN: Denies pruitis. Denies rash. PHYSICAL EXAM: VITAL SIGNS: Reviewed. GENERAL: Well-developed in no acute distress. HEENT: Head is normocephalic. Pupils are equal, round. Sclerae anicteric. Mucous membranes of the mouth are moist. Neck supple. No JVD or thyromegaly LUNGS: Respirations even and unlabored. Lungs essentially clear to auscultation bilaterally. HEART: Tachycardic. Irregular rate and rhythm. S1 and S2 heard. ABDOMEN: Soft. Nondistended. Nontender. EXTREMITIES: Normal range of motion. No clubbing or cyanosis. Peripheral pulses intact. No lower extremity edema NEUROLOGIC: Awake and alert. Oriented x 3. ASSESSMENT: Shortness of breath with hemoptysis Left upper lobe pneumonia New onset atrial fibrillation with RVR Moderate coronary artery calcifications, per CTA History of hypertension Obesity: BMI 37.6 History of obstructive sleep apnea with home CPAP use PLAN: Obtain 2D echo to assess cardiac structure and function Increase metoprolol succinate to 100 mg twice daily Add digoxin 125 mcg daily Continue IV Cardizem. Wean as heart rate will tolerate. Continue IV heparin. If no plans for any invasive testing from other consultants, may transition to Eliquis from a cardiac standpoint Continue telemetry monitoring Further recommendations pending patient course Nurse practitioner note has been reviewed by physician. Signing provider agrees with the documented findings, assessment, and plan of care documented by [employer] DEVELOPER as a scribe. Past Medical History Past Medical History: Hypertension, Sleep Apnea/CPAP/BIPAP Additional Past Medical History / Comment(s): Gout History of Any Multi-Drug Resistant Organisms: None Reported Past Surgical History: Orthopedic Surgery Additional Past Surgical History / Comment(s): left knee surgery Past Anesthesia/Blood Transfusion Reactions: No Reported Reaction Past Psychological History: No Psychological Hx Reported Smoking Status: Never smoker Past Alcohol Use History: None Reported Past Drug Use History: None Reported - Past Family History Mother Family Medical History: Hypertension Medications and Allergies Home Medications Medication Instructions Recorded Confirmed Type lisinopriL 40 mg PO DAILY 07/30/24 10/20/24 History Albuterol Inhaler [Ventolin Hfa 2 puff INHALATION RT-Q4H PRN 10/20/24 10/20/24 History Inhaler] Amoxic-Pot Clav 875-125Mg 1 tab PO Q12HR 10/20/24 10/20/24 History [Augmentin 875-125] Ergocalciferol (Vitamin D2) 1,250 mcg PO SA 10/20/24 10/20/24 History [Drisdol (GEQ) 1,250 MCG (50,000 IU)] Metoprolol Succinate (ER) [Toprol 100 mg PO DAILY 10/20/24 10/20/24 History Xl] methylPREDNISolone Dose Pack See Taper PO DIRECTED 10/20/24 10/20/24 History [Medrol Dose Pack] Allergies Allergy/AdvReac Type Severity Reaction Status Date / Time No Known Allergies Allergy Verified 10/20/24 12:00 Physical Exam Vitals: Vital Signs Temp Pulse Resp BP Pulse Ox 10/22/24 04:00 112 H 18 113/73 96 10/22/24 02:00 18 10/22/24 00:00 98.0 F 107 H 18 109/70 96 10/21/24 20:00 113 H 18 114/69 95 10/21/24 15:20 133 H 18 128/74 97 Intake and Output 10/21/24 10/22/24 10/22/24 22:59 06:59 14:59 Intake Total 255.879 233.472 240 Balance 255.879 233.472 240 Intake: Intake, IV Titration 75.879 233.472 Amount Diltiazem 125 mg In 97.583 Dextrose 5% in Water 100 ml @ 5 MG/HR 5 mls/hr IV .Q24H [facility]I Rx#:[id number] Heparin Sod,Pork in 0.45% 75.879 135.889 NaCl 25,000 unit In 0.45 % NaCl 1 250ml.bag @ 8.17 UNITS/KG/HR 10.006 mls/ hr IV .Q24H [facility]ATI Rx#: [id number] Oral 180 240 Other: # Voids 1 Weight 122.2 kg Results 10/22/24 02:35 10/21/24 05:17 Coagulation 10/21/24 10/22/24 10/22/24 Range/Units 15:04 02:35 02:35 PT 10.6 (10.0-12.5) sec APTT 32.0 H 36.5 H (22.0-30.0) sec 10/22/24 Range/Units 09:21 PT (10.0-12.5) sec APTT 36.6 H (22.0-30.0) sec CBC 10/22/24 Range/Units 02:35 WBC 3.64 L (4.50-10.00) 10*3/uL RBC 4.44 (4.40-5.60) 10*6/uL Hgb 13.8 (13.0-17.0) g/dL Hct 40.1 (39.6-50.0) % Plt Count 136 L (140-440) 10*3/uL Current Medications Generic Name Dose Route Start Last Admin Trade Name Freq PRN Reason Stop Dose Admin Albuterol/Ipratropium 3 ml 10/20/24 11:40 Ipratropium-Albuterol 3 Ml Neb INHALATION RT-QID PRN Shortness Of Breath Or Wheezing Allopurinol 300 mg 10/21/24 09:00 10/22/24 08:32 Allopurinol 300 Mg Tab PO 300 mg DAILY TATI Administration Digoxin 125 mcg 10/22/24 09:00 Digoxin 125 Mcg Tab PO DAILY [facility]ATI Heparin Sodium (Porcine) 0 unit 10/21/24 08:45 Heparin Sodium 1,000 Un/Ml (10ml Vl) IV PER PROTOCOL PRN Low PTT Protocol Sodium Chloride 1,000 mls @ 20 mls/hr 10/20/24 10:15 10/21/24 10:45 Saline 0.9% IV Not Given .Q24H [facility]ATI Ceftriaxone Sodium 2 gm/ 50 mls @ 100 mls/hr 10/21/24 09:00 10/22/24 08:44 Sodium Chloride IVPB 10/24/24 09:29 100 mls/hr Q24HR TATI Administration Protocol Heparin Sodium/Sodium Chloride 250 mls @ 10.006 mls/hr 10/21/24 08:45 10/22/24 04:43 25,000 unit/ Sodium Chloride IV 12.17 units/kg/hr .Q24H [facility]ATI 14.905 mls/hr Administration Protocol 8.17 UNITS/KG/HR Diltiazem HCl 125 mg/ Dextrose 125 mls @ 5 mls/hr 10/21/24 14:00 10/22/24 04:43 /Water IV 15 mg/hr .Q24H TATI 15 mls/hr Administration Protocol 5 MG/HR Lisinopril 40 mg 10/21/24 09:00 10/22/24 08:32 Lisinopril 20 Mg Tab PO 40 mg DAILY TATI Administration Methylprednisolone Sodium Succinate 60 mg 10/22/24 12:00 Methylprednisolone Sod Succi 125 Mg/2 Ml Vial IV Q6HR [facility]ATI Metoprolol Succinate 100 mg 10/22/24 21:00 Metoprolol Succinate (Er) 100 Mg Tab.Er.24h PO BID [facility] Miscellaneous Information 1 each 10/20/24 10:07 Pneumonia Protocol Utilized 1 Each Misc PO ONCE PRN Per Protocol Tamsulosin HCl 0.4 mg 10/20/24 18:30 10/21/24 14:48 Tamsulosin 0.4 Mg Cap.Er.24h PO 0.4 mg PC-SUPPER TATI Administration Intake and Output 10/21/24 10/22/24 10/22/24 22:59 06:59 14:59 Intake Total 255.879 233.472 240 Balance 255.879 233.472 240 Intake: Intake, IV Titration 75.879 233.472 Amount Diltiazem 125 mg In 97.583 Dextrose 5% in Water 100 ml @ 5 MG/HR 5 mls/hr IV .Q24H [facility] Rx#:[id number] Heparin Sod,Pork in 0.45% 75.879 135.889 NaCl 25,000 unit In 0.45 % NaCl 1 250ml.bag @ 8.17 UNITS/KG/HR 10.006 mls/ hr IV .Q24H [facility]I Rx#: [id number] Oral 180 240 Other: # Voids 1 Weight 122.2 kg 10/22/24 02:35 10/21/24 05:17
[2024-10-22] MEDS: methylPREDNISolone SOD SUCCI 125 MG/2 ML VIAL IV SCH (11:22)
[2024-10-22] MEDS: DIGOXIN 125 MCG TAB PO SCH (11:44)
--- NOTE | 2024-10-22 12:41 | P.PN ---
Subjective Progress Note Date: 10/22/24 Hospital Course: Patient is a very pleasant 59-year-old male with a past medical history of hypertension, BPH, gout, colon cancer s/p resection, and obstructive sleep apnea CPAP dependent nightly. He presented to the emergency department with a chief complaint of shortness of breath and hemoptysis. Patient reports he just returned from an 8 day trip to [facility] last week and shortly after returning on Monday he began developing auditory symptoms since shortness of breath. Patie nt reports the symptoms progressively worsened and on Monday he went to the urgent care for evaluation. Patient reports he was started on a Augmentin, steroids, and inhaler with no improvement. Patient reports he has had subjective fevers, chills, diaphoresis, and productive cough. Patient reports today that shortness of breath has worsened and has been accompanied by multiple episodes of hemoptysis so he came to the hospital for further evaluation. Patient reports that his also has similar symptoms but that her started after he developed his and has not reached the severity of his as of yet. He denies having any known exposure to TB, reports staying in a condo in [facility], and visiting/exploring's a [employer]. Upon arrival to our facility, patient underwent evaluation in the emergency department vital signs upon arrival show blood pressure 163/77, heart rate 80, respiratory rate 18,. Temp 97.9 F, and SpO2 of 97% on room air. EKG showing normal sinus rhythm at 79 bpm with nonspecific T wave abnormality in lateral/inferior leads. Labs completed and reviewed. CBC showing bicytopenia with hemoglobin of 12.9 and platelet count of 132. WBC count is normal at 5.92. Coagulation profile normal findings. BMP showing non-anion gap metabolic acidosis with chloride of 109, bicarb of 21, and anion gap of 10. Mild prerenal azotemia with BUN of 21. Blood glucose 123. C alcium 8.4. Magnesium 1.8. Liver profile unremarkable. Troponin 0.016. Influenza A, influenza B, RSV, and COVID PCR negative. CTA chest negative for pulmonary emboli showing patchy left upper lung field infiltrate concerning for pneumonia, likely atypical pneumonia. Physical exam: Patient seen and fully evaluated at bedside this morning. He reports increased coughing and less sputum production today. Reports shortness of breath remains unchanged. He denies further episodes of hemoptysis. He reports he continues to have night sweats. Denies having any headache, lightheadedness, dizziness, chest pain, palpitations, or experiencing any numbness/tingling/weakness in his extremities Vital signs reviewed and stable. General: Nontoxic, no distress and appears stated age. Derm: Skin warm and dry, normal coloration for ethnicity. Head: Atraumatic, normocephalic and symmetric. Eyes: EOM's intact, no lid lag, and anicteric sclera Mouth: no lip lesions, mucus membranes moist Cardiovascular: Irregularly irregular, no murmur, positive posterior tibial pulses bilaterally, and cap refill < 2 seconds. Lungs: Respirations even, regular, and unlabored on room air. Lungs diminished with diffuse rhonch and soft expiratory wheezes bilaterally. Coarse raspy no nproductive cough on examination Abdominal: soft, nontender to palpation, no guarding, no appreciable organomegaly Ext: ROM intact. No gross muscle atrophy, no edema, no contractures Neuro: Speech clear, face symmetrical and CN II-XII grossly intact with no noted focal neuro deficits Psych: Alert and oriented to person, place, time, and situation. Appropriate and pleasant affect. Assessment and Plan of Care: Left upper lobe pneumonia, suspected atypical pneumonia infection Bicytopenia, likely reactive secondary to above - Secondary to recent travel to [facility] and hemoptysis, we will need to rule out streptococcal pneumonia, staph aureus pneumonia, mycoplasma pneumonia, histoplasmosis, Legionella, and pulmonary TB - CTA chest negative for pulmonary emboli showing patchy left upper lung field infiltrate concerning for pneumonia, likely atypical pneumonia. Chest x-ray showing left upper lobe infiltrate - Continue Airborne precautions pending further recommendations from pulmonology and infectious disease. - Pulmonary following, discussed plan of care with circular knitter helper and pulmonary SCHOOL BUS DRIVER. They are discontinuing prednisone and starting patient on Solu-Medrol. - Infectious disease following and discussed plan of care, although it is unlikely that patient has pulmonary TB with his symptoms and experiencing similar symptoms still need to completely rule out due to hemoptysis, night sweats and recent travel to [facility]. ID ordered sputum AFB daily x 3 and QuantiFERON TB Gold test. - Oxygenation to be administered and titrated as needed to maintain SPO2 equal to or greater than 92%. - IV antibiotics: Completed 3-day course of Zithromax 500 mg daily and to continue with with Rocephin 2 g daily pending further course. - Steroids: Secondary to worsening cough and increased diminished and adventitious lung sounds, prednisone discontinued and patient started on Solu- Medrol 60 mg IVP every 6 hours. - Telemetry monitoring. - Monitor pulse-oximetry - Duonebs 4 times daily and as needed for SOB and/or wheezing - Incentive Spirometry - Sputum culture pending, urine Legionella negative. Awaiting results for Streptococcus urine antigen, histoplasmosis urine antigen, and mycoplasma antibody. - Repeat morning chest x-ray New onset atrial fibrillation with RVR - Patient currently maintaining RVR with an improved rate of 110s, - Continue low intensity heparin infusion with close monitoring of PTT every 6 hours for goal therapeutic range of 45 to 79 seconds. Patient to be transitioned to Eliquis 5 mg twice daily starting tomorrow morning at 9 AM with discontinuation of heparin infusion at 11 AM. - Continue Cardizem infusion 5 mg/h and titrate up to 15 mg/h for goal ventricular rate of 80-100. - Cardiology following, discussed plan of care with cardiac [employer] DRIVER increasing metoprolol tartrate to 100 mg twice daily and starting patient on digoxin 125 mcg daily in addition to continuation of Cardizem infusion for rate control. - Echocardiogram to be completed. - Patient to remain on continuous telemetry monitoring. - TSH normal findings at 2.530. Hypertension -Monitor vital signs and continue daily medication regimen with metoprolol 100 mg twice daily and lisinopril 40 mg daily Gout - Continue allopurinol 300 mg daily.. BPH -Continue Flomax 0.4 mg daily. Obstructive sleep apnea -Continue home CPAP nightly and while napping. Data and imaging reviewed: Morning labs reviewed. CBC showing bicytopenia with WBC of 3.64 and platelet count of 136. Coagulation profile showing a subtherapeutic PTT of 36.6. EKG completed this morning showing atrial fibrillation with RVR at 146 bpm with moderate T wave inversion/abnormalities in anterior/lateral leads II, III, aVL,V3, V4, V5 and V6. Vital signs reviewed. Morning blood pressure 123/81, heart rate 101, respiratory rate 20, temp 98.8 F, and SpO2 of 95% on room air.. Temperature high over the past 24 hours is 99.0 F. CODE STATUS: Full code DVT prophylaxis: Low intensity heparin infusion Discussed with: Patient, RN, and circular knitter helper, pulmonary SCHOOL BUS DRIVER and cardiology [employer] DRIVER Anticipated discharge date: Pending clinical course Anticipated discharge place: Home Patient was seen independently by Nurse Practitioner. This document was prepared using [employer] dictation software. Please allow for errors in capacitor tester while rare they do occur. Quincy Cui, SCHOOL BUS DRIVER rendered care for this patient independently, reviewed the findings and plan as documented in the note above and agree with plan. I did not physically speak with or examine the patient on this date. Objective - Vital Signs Vital signs: Vital Signs Temp 98.0 F 10/22/24 00:00 Pulse 112 H 10/22/24 04:00 Resp 18 10/22/24 04:00 BP 113/73 10/22/24 04:00 Pulse Ox 96 10/22/24 04:00 FiO2 Intake & Output 10/21/24 10/22/24 10/22/24 18:59 06:59 18:59 Intake Total 255.879 233.472 Balance 255.879 233.472 Weight 122.2 kg Intake: Intake, IV Titration 75.879 233.472 Amount Diltiazem 125 mg In 97.583 Dextrose 5% in Water 100 ml @ 5 MG/HR 5 mls/hr IV .Q24H [facility] Rx#:[id number] Heparin Sod,Pork in 0.45% 75.879 135.889 NaCl 25,000 unit In 0.45 % NaCl 1 250ml.bag @ 8.17 UNITS/KG/HR 10.006 mls/ hr IV .Q24H [facility] Rx#: [id number] Oral 180 Other: # Voids 1 - Labs CBC & Chem 7: 10/22/24 02:35 10/21/24 05:17 Labs: Abnormal Lab Results - Last 24 Hours (Table) 10/21/24 10/21/24 10/21/24 Range/Units 05:17 05:17 09:05 WBC (4.50-10.00) 10*3/uL RBC 4.01 L 4.16 L (4.40-5.60) X 10*6/uL Hgb 12.6 L (13.0-17.0) g/dL Hct 36.8 L 37.6 L (39.6-50.0) % MCH 32.2 H (27.0-32.0) pg Plt Count 136 L 137 L (140-440) X 10*3/uL Neutrophils # (1.80-7.70) 10*3/uL Eosinophils # 0.01 L (0.04-0.35) 10*3/uL APTT (22.0-30.0) sec Calcium 8.2 L (8.7-10.3) mg/dL Total Protein 5.8 L (6.2-8.2) g/dL 10/21/24 10/22/24 10/22/24 Range/Units 15:04 02:35 02:35 WBC 3.64 L (4.50-10.00) 10*3/uL RBC (4.40-5.60) X 10*6/uL Hgb (13.0-17.0) g/dL Hct (39.6-50.0) % MCH (27.0-32.0) pg Plt Count 136 L (140-440) X 10*3/uL Neutrophils # 1.75 L (1.80-7.70) 10*3/uL Eosinophils # 0.00 L (0.04-0.35) 10*3/uL APTT 32.0 H 36.5 H (22.0-30.0) sec Calcium (8.7-10.3) mg/dL Total Protein (6.2-8.2) g/dL Microbiology - Last 24 Hours (Table) 10/20/24 13:49 Gram Stain - Preliminary Sputum
--- NOTE | 2024-10-22 12:43 | P.PN ---
Subjective Progress Note Date: 10/22/24 Principal diagnosis: Pneumonia. This is a very pleasant 59-year-old male patient with a known history of gout, hypertension, obesity, obstructive sleep apnea on CPAP. 2 to 3 weeks ago the patient developed a dry nonproductive cough and felt it may be due to the increased dose of his lisinopril. After that he traveled to [facility] for [address] On the way home he had a layover in [place] where he spent the night in a hotel prior to arriving in [place]. Over the past week he had noted increasing shortness of breath, cough and congestion. He did have some night sweats. No n ausea, vomiting or diarrhea. No sick contacts. He was given a Medrol Dosepak and Augmentin in the outpatient setting without much improvement. He presented to the emergency room this morning. CT angiogram ruled out pulmonary embolism. There is a patchy left upper lobe lung field infiltrate suspicious for pneumonia. White count 5.9. Hemoglobin 12.9. Platelets 132. Sodium 140. Potassium 3.8. Bicarb 21. BUN 21. Creatinine 1.08. Glucose 123. Troponins negative x 2. Viral screen negative for influenza A/B, RSV, COVID. He is seen today in consultation on the regular medical floor. He is currently on AFB precautions, secondary to a comment by the radiologist suggesting possible TB exposure while traveling. No previous history of tuberculosis. He is awake and alert in no acute distress. Maintaining good O2 saturations in the 90s on room air oxygen. Afebrile. Hemodynamically stable. He does have a productive cough of dark brown sputum some blood-tinged sputum. Seen today on 10/21/2024, patient is comfortable, not in any distress continues to have some productive cough with thick green phlegm. Gram stain is nondiagnostic so far, patient is again feeling better, not in distress no fever no chills no hemoptysis, no chest pain. Urine Legionella antigen is negative WB C count today is 5.6 hemoglobin 13.4 basic metabolic profile is normal renal profile is normal. Liver enzymes are normal, chest x-ray today showed significant left upper lobe infiltrate. Consistent with pneumonia. Progress note dated October 22, 2024. 59-year-old male seen today in room 359. The patient is currently being evaluated for possible tuberculosis. Sputum sample, #1, was negative for AFB. The interferon gamma release assay test, is pending. The patient continues on Rocephin, and a Medrol Dosepak. He is on room air. Current laboratory data includes a white count of 3.6, hemoglobin 13.8, hematocrit 40.1, and a platelet count of 136,000. PTT is 36.6. Sodium 141, potassium 4, chlorides 106, CO2 26, BUN 17, creatinine 1.1. Glucose is 98. TSH is normal. Chest x-ray shows a l eft upper lobe infiltrate. Objective - Vital Signs Vital signs: Vital Signs Temp 98.8 F 10/22/24 08:40 Pulse 101 H 10/22/24 08:40 Resp 20 10/22/24 08:40 BP 123/81 10/22/24 08:40 Pulse Ox 95 10/22/24 08:40 FiO2 Intake & Output 10/21/24 10/22/24 10/22/24 18:59 06:59 18:59 Intake Total 255.879 233.472 342.099 Balance 255.879 233.472 342.099 Weight 122.2 kg Intake: Intake, IV Titration 75.879 233.472 102.099 Amount Diltiazem 125 mg In 97.583 Dextrose 5% in Water 100 ml @ 5 MG/HR 5 mls/hr IV .Q24H [facility] Rx#:[id number] Heparin Sod,Pork in 0.45% 75.879 135.889 102.099 NaCl 25,000 unit In 0.45 % NaCl 1 250ml.bag @ 8.17 UNITS/KG/HR 10.006 mls/ hr IV .Q24H [facility] Rx#: [id number] Oral 180 240 Other: # Voids 1 - Exam No acute distress, oriented 3. HEENT examination is grossly unremarkable. Mucous membranes are moist. No oral lesions. Neck supple. Full range of motion. No adenopathy thyromegaly or neck vein distention. Cardiovascular examination reveals regular rhythm rate. S1-S2 normal. No S3 or S4. No discernible murmur noted. Lungs reveal clear breath sounds. Breath sounds are equal bilaterally. No adventitious lung sounds including wheezes rhonchi or crackles. Abdomen soft bowel sounds are heard. No masses or tenderness. Extremities are intact. No cyanosis clubbing or edema. Skin is without rash or lesion. Neurologic examination is brief but nonfocal. - Labs CBC & Chem 7: 10/22/24 02:35 10/21/24 05:17 Labs: Abnormal Lab Results - Last 24 Hours (Table) 10/21/24 10/22/24 10/22/24 Range/Units 15:04 02:35 02:35 WBC 3.64 L (4.50-10.00) 10*3/uL Plt Count 136 L (140-440) 10*3/uL Neutrophils # 1.75 L (1.80-7.70) 10*3/uL Eosinophils # 0.00 L (0.04-0.35) 10*3/uL APTT 32.0 H 36.5 H (22.0-30.0) sec 10/22/24 Range/Units 09:21 WBC (4.50-10.00) 10*3/uL Plt Count (140-440) 10*3/uL Neutrophils # (1.80-7.70) 10*3/uL Eosinophils # (0.04-0.35) 10*3/uL APTT 36.6 H (22.0-30.0) sec Assessment and Plan Assessment: Acute community-acquired left upper lobe pneumonia, currently being evaluated for possible tuberculosis. Benign essential hypertension. History of gout. History of obstructive sleep apnea syndrome. Lifelong non-smoker. Obesity. Plan: Plan dated October 22, 2024. The patient continues on antibiotics as per infectious diseases. Initial sputum was negative for AFB. The patient is stable, awake and alert. No respiratory issues or problems. The interferon gamma release assay is currently pending. Labs, x-rays, medications are reviewed. We will continue to follow with patient, make recommendations along the way. Prognosis is thought to be good. Bronchoscopy not warranted at this time. Dictation was produced using [employer] software. Please excuse any grammatical, word or spelling errors. Time with Patient: Less than 30
--- NOTE | 2024-10-22 14:29 | P.PN ---
Subjective Progress Note Date: 10/22/24 Principal diagnosis: Reason for follow-up is pneumonia and question of TB Patient is a 59-year-old male with a past medical history significant for hypertension sleep apnea in this patient who recently came back from a trip to [facility] where he stayed for 8 days patient subsequent whelping respiratory symptoms failing outpatient Medrol Dosepak and Augmentin with a CT angiogram read by the radiologist as irregular opacity left upper lobe with differential of TB prompted this consultation. On today's evaluation that is 10/22/2024, patient has been afebrile, patient is breathing comfortably and is currently on room air, patient denies having any chest pain and cough has decreased interval history left pitting of some bloodstained sputum, patient denies nausea vomiting or diarrhea and no abdominal pain. Patient white count is 3.64 currently waiting for sputum culture as well as Objective - Vital Signs Vital signs: Vital Signs Temp 98.2 F 10/22/24 11:30 Pulse 106 H 10/22/24 11:30 Resp 20 10/22/24 11:30 BP 121/75 10/22/24 11:30 Pulse Ox 94 L 10/22/24 11:30 FiO2 Intake & Output 10/21/24 10/22/24 10/22/24 18:59 06:59 18:59 Intake Total 255.879 233.472 342.099 Balance 255.879 233.472 342.099 Weight 122.2 kg Intake: Intake, IV Titration 75.879 233.472 102.099 Amount Diltiazem 125 mg In 97.583 Dextrose 5% in Water 100 ml @ 5 MG/HR 5 mls/hr IV .Q24H [facility] Rx#:[id number] Heparin Sod,Pork in 0.45% 75.879 135.889 102.099 NaCl 25,000 unit In 0.45 % NaCl 1 250ml.bag @ 8.17 UNITS/KG/HR 10.006 mls/ hr IV .Q24H [facility] Rx#: [id number] Oral 180 240 Other: # Voids 1 - Exam GENERAL DESCRIPTION: Middle aged male lying in bed in no distress RESPIRATORY SYSTEM: Unlabored breathing , decreased breath sounds at bases HEART: S1 S2 regular rate and rhythm , ABDOMEN: Soft , no tenderness EXTREMITIES: No edema feet - Labs CBC & Chem 7: 10/22/24 02:35 10/21/24 05:17 Labs: Abnormal Lab Results - Last 24 Hours (Table) 10/21/24 10/22/24 10/22/24 Range/Units 15:04 02:35 02:35 WBC 3.64 L (4.50-10.00) 10*3/uL Plt Count 136 L (140-440) 10*3/uL Neutrophils # 1.75 L (1.80-7.70) 10*3/uL Eosinophils # 0.00 L (0.04-0.35) 10*3/uL APTT 32.0 H 36.5 H (22.0-30.0) sec 10/22/24 Range/Units 09:21 WBC (4.50-10.00) 10*3/uL Plt Count (140-440) 10*3/uL Neutrophils # (1.80-7.70) 10*3/uL Eosinophils # (0.04-0.35) 10*3/uL APTT 36.6 H (22.0-30.0) sec Assessment and Plan (1) Pneumonia Current Visit: Yes Status: Acute Code(s): J18.9 - PNEUMONIA, UNSPECIFIED ORGANISM SNOMED Code(s): 621773788 Plan: 1patient presented to hospital with shortness of breath cough congestion bringing up some sputum which is blood-streaked with evidence of left upper lobe pneumonia on the CT in this patient symptom has been going on for less than a week he did have recent history of travel to [facility] however with such small duration of symptoms and no evidence of any cavitation on the CT clinically doubt TB and more likely dealing with a regular community-acquired pneumonia 2currently waiting for QuantiFERON TB Gold test and sputum AFB stains to be finalized sputum cultures currently pending as well 3patient has shown clinical improvement continue Rocephin and Zithromax while waiting for the workup to be completed Dictation was produced using [employer] software. please excuse any grammatical, word or spelling errors. Time with Patient: Less than 30
[2024-10-22] MEDS: METOPROLOL SUCCINATE (ER) 100 MG TAB.ER.24H PO SCH (20:21)
[2024-10-23 07:00] LABS: HCT 40.2 % (39.6-50.0); HGB 14.2 g/dL (13.0-17.0); MCH 31.2 pg (27.0-32.0); MCHC 35.3 g/dL (32.0-37.0); MCV 88.4 fL (80.0-97.0); Mean Platelet Volume 9.9 fL (9.5-12.2); Platelet Count 176 10*3/uL (140-440); RBC 4.55 10*6/uL (4.40-5.60); RDW 13.5 % (11.5-14.5); WBC 4.44 10*3/uL (4.50-10.00)
--- NOTE | 2024-10-23 07:16 | XR ---
EXAMINATION TYPE: XR chest 1V portable DATE OF EXAM: 10/23/2024 7:06 AM COMPARISON: 10/21/2024 CLINICAL INDICATION: Male, 59 years old with history of increased rhonchi and diminished lungs, follo w up, TECHNIQUE: XR chest 1V portable views of the chest are obtained. FINDINGS: Demonstrated are scattered senescent parenchymal change. Persistent but improved infiltrate left upper lobe. Continued follow-up advised. The heart is stable. Hilar and mediastinal structures are within normal limits. Degenerative changes are seen of the dorsal spine. IMPRESSION: 1. Persistent but improved infiltrate left upper lobe. Continued follow-up advised. [facility], , 10/23/2024 7:14 AM
[2024-10-23] MEDS: APIXABAN 5 MG TAB PO SCH (08:00)
[2024-10-23 08:05] LABS: ALT 43 U/L (4-49); AST 34 U/L (17-59); African American GFR (CKD) 80 (>60 ml/min/1.73 sqM); Albumin 3.6 g/dL (3.5-5.0); Alkaline Phosphatase 92 U/L (38-126); Anion Gap 7 mmol/L; Blood Urea Nitrogen 28 mg/dL (9-20); Calcium 8.6 mg/dL (8.4-10.2); Carbon Dioxide 25 mmol/L (22-30); Chloride 104 mmol/L (98-107); Glucose 158 mg/dL (74-99); Non-African American GFR(CKD) 69 (>60 ml/min/1.73 sqM); Potassium 4.5 mmol/L (3.5-5.1); Sodium 136 mmol/L (137-145); Total Bilirubin 0.5 mg/dL (0.2-1.3); Total Protein 6.1 g/dL (6.3-8.2)
--- NOTE | 2024-10-23 11:08 | P.PN ---
Subjective HISTORY OF PRESENT ILLNESS: This is a 59-year-old male with a past medical history significant for hypertension and obesity. Patient does not follow with a title curative specialist. We have been asked to see the patient in consultation for A-fib with RVR. Patient examined at the bedside. Patient presented to the hospital with a chief complaint of shortness of breath and hemoptysis. Patient is currently in airborne isolation to rule out TB. Patient went into A-fib with RVR yesterday. He is currently on a Cardizem drip at 15 mg an hour. He remains in atrial fibrillation with RVR at the time of examination. Patient denies any known history of atrial fibrillation. DIAGNOSTICS: - EKG reveals A-fib with RVR. - Chest xray left upper lobe infiltrate. Correlate for pneumonia.. - Laboratory data: WBC 3.64. Hemoglobin 13.8. Platelet count 136. Sodium 141. Potassium 4.0. BUN 17. Creatinine 1.1. TSH 2.530 - Current home cardiac medications include lisinopril 40 mg daily and metoprolol succinate 100 mg daily. - No previous echocardiogram, stress test, or cardiac catheterization available in EMR for review 10/23/2024 Patient examined this morning at the bedside. Patient remains in atrial fibrillation [place] heart [place] [id number]. He remains on IV Cardizem at 15 mg an hour. He has been transition to Eliquis this morning. 2D echo remains pending. PHYSICAL EXAM: VITAL SIGNS: Reviewed. GENERAL: Well-developed in no acute distress. HEENT: Head is normocephalic. Pupils are equal, round. Sclerae anicteric. Mucous membranes of the mouth are moist. Neck supple. No JVD or thyromegaly LUNGS: Respirations even and unlabored. Lungs essentially clear to auscultation bilaterally. HEART: Tachycardic. Irregular rate and rhythm. S1 and S2 heard. ABDOMEN: Soft. Nondistended. Nontender. EXTREMITIES: Normal range of motion. No clubbing or cyanosis. Peripheral pulses intact. No lower extremity edema NEUROLOGIC: Awake and alert. Oriented x 3. ASSESSMENT: Shortness of breath with hemoptysis Left upper lobe pneumonia New onset atrial fibrillation with RVR Moderate coronary artery calcifications, per CTA History of hypertension Obesity: BMI 37.6 History of obstructive sleep apnea with home CPAP use PLAN: 2D echo pending. Await results. Patient transitioned to Eliquis this morning Discontinue IV Cardizem Begin verapamil 40 mg 3 times daily Continue metoprolol succinate 100 mg twice daily Continue digoxin 125 mcg daily Continue telemetry monitoring Further recommendations pending patient course Nurse practitioner note has been reviewed by physician. Signing provider agrees with the documented findings, assessment, and plan of care documented by PRODUCTION LINE OPERATOR as a scribe. Objective - Vital Signs Vital signs: Vital Signs Temp 97.5 F L 10/23/24 08:00 Pulse 129 H 10/23/24 08:00 Resp 20 10/23/24 08:00 BP 133/80 10/23/24 08:00 Pulse Ox 95 10/23/24 08:00 FiO2 Intake & Output 10/22/24 10/23/24 10/23/24 18:59 06:59 18:59 Intake Total 947.099 272.901 Output Total 800 Balance 947.099 272.901 -800 Weight 122.2 kg Intake: Intake, IV Titration 227.099 272.901 Amount Diltiazem 125 mg In 125 125 Dextrose 5% in Water 100 ml @ 5 MG/HR 5 mls/hr IV .Q24H [facility] Rx#:[id number] Heparin Sod,Pork in 0.45% 102.099 147.901 NaCl 25,000 unit In 0.45 % NaCl 1 250ml.bag @ 8.17 UNITS/KG/HR 10.006 mls/ hr IV .Q24H [facility] Rx#: [id number] Oral 720 Output: Urine 800 Other: # Voids 2 1 - Labs CBC & Chem 7: 10/23/24 05:50 10/23/24 05:50 Labs: Abnormal Lab Results - Last 24 Hours (Table) 10/22/24 10/23/24 10/23/24 Range/Units 19:05 05:50 05:50 WBC 4.44 L (4.50-10.00) 10*3/uL APTT 46.9 H (22.0-30.0) sec Sodium 136 L (137-145) mmol/L BUN 28 H (9-20) mg/dL Glucose 158 H (74-99) mg/dL Total Protein 6.1 L (6.3-8.2) g/dL 10/23/24 Range/Units 07:05 WBC (4.50-10.00) 10*3/uL APTT 55.1 H (22.0-30.0) sec Sodium (137-145) mmol/L BUN (9-20) mg/dL Glucose (74-99) mg/dL Total Protein (6.3-8.2) g/dL Microbiology - Last 24 Hours (Table) 10/22/24 10:48 Acid Fast Bacilli Smear - Preliminary Sputum Endotracheal 10/20/24 13:49 Gram Stain - Final Sputum Sputum Culture - Final
[2024-10-23] MEDS: VERAPAMIL 40 MG TAB PO SCH (11:17)
--- NOTE | 2024-10-23 11:45 | P.PN ---
Subjective Progress Note Date: 10/23/24 Principal diagnosis: Pneumonia. This is a very pleasant 59-year-old male patient with a known history of gout, hypertension, obesity, obstructive sleep apnea on CPAP. 2 to 3 weeks ago the patient developed a dry nonproductive cough and felt it may be due to the increased dose of his lisinopril. After that he traveled to [facility] for 8 days. On the way home he had a layover in [place] where he spent the night in a hotel prior to arriving in [place]. Over the past week he had noted increasing shortness of breath, cough and congestion. He did have some night sweats. No n ausea, vomiting or diarrhea. No sick contacts. He was given a Medrol Dosepak and Augmentin in the outpatient setting without much improvement. He presented to the emergency room this morning. CT angiogram ruled out pulmonary embolism. There is a patchy left upper lobe lung field infiltrate suspicious for pneumonia. White count 5.9. Hemoglobin 12.9. Platelets 132. Sodium 140. Potassium 3.8. Bicarb 21. BUN 21. Creatinine 1.08. Glucose 123. Troponins negative x 2. Viral screen negative for influenza A/B, RSV, COVID. He is seen today in consultation on the regular medical floor. He is currently on AFB precautions, secondary to a comment by the radiologist suggesting possible TB exposure while traveling. No previous history of tuberculosis. He is awake and alert in no acute distress. Maintaining good O2 saturations in the 90s on room air oxygen. Afebrile. Hemodynamically stable. He does have a productive cough of dark brown sputum some blood-tinged sputum. Seen today on 10/21/2024, patient is comfortable, not in any distress continues to have some productive cough with thick green phlegm. Gram stain is nondiagnostic so far, patient is again feeling better, not in distress no fever no chills no hemoptysis, no chest pain. Urine Legionella antigen is negative WB C count today is 5.6 hemoglobin 13.4 basic metabolic profile is normal renal profile is normal. Liver enzymes are normal, chest x-ray today showed significant left upper lobe infiltrate. Consistent with pneumonia. Progress note dated October 22, 2024. 59-year-old male seen today in room 359. The patient is currently being evaluated for possible tuberculosis. Sputum sample, #1, was negative for AFB. The interferon gamma release assay test, is pending. The patient continues on Rocephin, and a Medrol Dosepak. He is on room air. Current laboratory data includes a white count of 3.6, hemoglobin 13.8, hematocrit 40.1, and a platelet count of 136,000. PTT is 36.6. Sodium 141, potassium 4, chlorides 106, CO2 26, BUN 17, creatinine 1.1. Glucose is 98. TSH is normal. Chest x-ray shows a l eft upper lobe infiltrate. Progress note dated October 23, 2024. 59-year-old male seen today in room 359. The patient is currently being evaluated for possible active tuberculosis. Actually, I doubt that to be the diagnosis. The patient had 2 sample sent for AFB smear and culture, both of which were negative. In addition, the interferon gamma release assay test, is currently pending. Currently, the patient is stable. He is on room air. The patient is not receiving any IV fluids. The patient was on heparin and Cardizem, for atrial fibrillation, but it has been discontinued. His Solu-Medr ol will be changed to a Medrol Dosepak. Current labs include a white count of 4.4, hemoglobin 14.2, hematocrit 40.2, platelet count of 176,000. PTT was 55.1. Sodium 136, potassium 4.5, chlorides 104, CO2 25, BUN 28, creatinine 1.15. Glucose was 158. Chest x-ray shows an improved left upper lobe infiltrate. Objective - Vital Signs Vital signs: Vital Signs Temp 97.5 F L 10/23/24 08:00 Pulse 129 H 10/23/24 08:00 Resp 20 10/23/24 08:00 BP 133/80 10/23/24 08:00 Pulse Ox 95 10/23/24 08:00 FiO2 Intake & Output 10/22/24 10/23/24 10/23/24 18:59 06:59 18:59 Intake Total 947.099 272.901 Output Total 800 Balance 947.099 272.901 -800 Weight 122.2 kg Intake: Intake, IV Titration 227.099 272.901 Amount Diltiazem 125 mg In 125 125 Dextrose 5% in Water 100 ml @ 5 MG/HR 5 mls/hr IV .Q24H [facility] Rx#:[id number] Heparin Sod,Pork in 0.45% 102.099 147.901 NaCl 25,000 unit In 0.45 % NaCl 1 250ml.bag @ 8.17 UNITS/KG/HR 10.006 mls/ hr IV .Q24H [facility] Rx#: [id number] Oral 720 Output: Urine 800 Other: # Voids 2 1 - Exam No acute distress, oriented 3. Currently on room air. HEENT examination is grossly unremarkable. Mucous membranes are moist. No oral lesions. Neck supple. Full range of motion. No adenopathy thyromegaly or neck vein distention. Cardiovascular examination reveals regular rhythm rate. S1-S2 normal. No S3 or S4. No discernible murmur noted. Lungs reveal clear breath sounds. Breath sounds are equal bilaterally. No adventitious lung sounds including wheezes rhonchi or crackles. Abdomen soft bowel sounds are heard. No masses or tenderness. Extremities are intact. No cyanosis clubbing or edema. Skin is without rash or lesion. Neurologic examination is brief but nonfocal. - Labs CBC & Chem 7: 10/23/24 05:50 10/23/24 05:50 Labs: Abnormal Lab Results - Last 24 Hours (Table) 10/22/24 10/23/24 10/23/24 Range/Units 19:05 05:50 05:50 WBC 4.44 L (4.50-10.00) 10*3/uL APTT 46.9 H (22.0-30.0) sec Sodium 136 L (137-145) mmol/L BUN 28 H (9-20) mg/dL Glucose 158 H (74-99) mg/dL Total Protein 6.1 L (6.3-8.2) g/dL 10/23/24 Range/Units 07:05 WBC (4.50-10.00) 10*3/uL APTT 55.1 H (22.0-30.0) sec Sodium (137-145) mmol/L BUN (9-20) mg/dL Glucose (74-99) mg/dL Total Protein (6.3-8.2) g/dL Microbiology - Last 24 Hours (Table) 10/22/24 10:48 Acid Fast Bacilli Smear - Preliminary Sputum Endotracheal 10/20/24 13:49 Gram Stain - Final Sputum Sputum Culture - Final Assessment and Plan Assessment: Acute community-acquired left upper lobe pneumonia, currently being evaluated for possible tuberculosis. Benign essential hypertension. History of gout. History of obstructive sleep apnea syndrome. Lifelong non-smoker. Obesity. Plan: Plan dated October 22, 2024. The patient continues on antibiotics as per infectious diseases. Initial sputum was negative for AFB. The patient is stable, awake and alert. No respiratory issues or problems. The interferon gamma release assay is currently pending. Labs, x-rays, medications are reviewed. We will continue to follow with patient, make recommendations along the way. Prognosis is thought to be good. Bronchoscopy not warranted at this time. Dictation was produced using [employer] software. Please excuse any grammatical, word or spelling errors. Plan dated October 23, 2024. The patient is seen today in room 359. He is on room air. Solu-Medrol. Will be discontinued, in favor of a Medrol Dosepak. He is not receiving any IV fluids. Heparin, and Cardizem, which was given to the patient for atrial fibrillation/RVR, this to be discontinued. Sputum's x 2, and negative for AFB smear. Interferon gamma release assay test, is currently pending. Labs, x- rays, and medications are reviewed. We will continue to follow the patient, make recommendations were appropriate. Prognosis is thought to be good. Chest x-ray is improved. Dictation was produced using [employer] software. Please excuse any grammatical, word or spelling errors. Time with Patient: Less than 30
--- NOTE | 2024-10-23 11:47 | P.PN ---
Subjective Progress Note Date: 10/23/24 Principal diagnosis: Pneumonia. This is a very pleasant 59-year-old male patient with a known history of gout, hypertension, obesity, obstructive sleep apnea on CPAP. 2 to 3 weeks ago the patient developed a dry nonproductive cough and felt it may be due to the increased dose of his lisinopril. After that he traveled to [facility] for [address] On the way home he had a layover in [place] where he spent the night in a hotel prior to arriving in [place]. Over the past week he had noted increasing shortness of breath, cough and congestion. He did have some night sweats. No n ausea, vomiting or diarrhea. No sick contacts. He was given a Medrol Dosepak and Augmentin in the outpatient setting without much improvement. He presented to the emergency room this morning. CT angiogram ruled out pulmonary embolism. There is a patchy left upper lobe lung field infiltrate suspicious for pneumonia. White count 5.9. Hemoglobin 12.9. Platelets 132. Sodium 140. Potassium 3.8. Bicarb 21. BUN 21. Creatinine 1.08. Glucose 123. Troponins negative x 2. Viral screen negative for influenza A/B, RSV, COVID. He is seen today in consultation on the regular medical floor. He is currently on AFB precautions, secondary to a comment by the radiologist suggesting possible TB exposure while traveling. No previous history of tuberculosis. He is awake and alert in no acute distress. Maintaining good O2 saturations in the 90s on room air oxygen. Afebrile. Hemodynamically stable. He does have a productive cough of dark brown sputum some blood-tinged sputum. Seen today on 10/21/2024, patient is comfortable, not in any distress continues to have some productive cough with thick green phlegm. Gram stain is nondiagnostic so far, patient is again feeling better, not in distress no fever no chills no hemoptysis, no chest pain. Urine Legionella antigen is negative WB C count today is 5.6 hemoglobin 13.4 basic metabolic profile is normal renal profile is normal. Liver enzymes are normal, chest x-ray today showed significant left upper lobe infiltrate. Consistent with pneumonia. Progress note dated October 22, 2024. 59-year-old male seen today in room 359. The patient is currently being evaluated for possible tuberculosis. Sputum sample, #1, was negative for AFB. The interferon gamma release assay test, is pending. The patient continues on Rocephin, and a Medrol Dosepak. He is on room air. Current laboratory data includes a white count of 3.6, hemoglobin 13.8, hematocrit 40.1, and a platelet count of 136,000. PTT is 36.6. Sodium 141, potassium 4, chlorides 106, CO2 26, BUN 17, creatinine 1.1. Glucose is 98. TSH is normal. Chest x-ray shows a l eft upper lobe infiltrate. Progress note dated October 23, 2024. 59-year-old male seen today in room 359. The patient is currently being evaluated for possible active tuberculosis. Actually, I doubt that to be the diagnosis. The patient had 2 sample sent for AFB smear and culture, both of which were negative. In addition, the interferon gamma release assay test, is currently pending. Currently, the patient is stable. He is on room air. The patient is not receiving any IV fluids. The patient was on heparin and Cardizem, for atrial fibrillation, but it has been discontinued. His Solu-Medr ol will be changed to a Medrol Dosepak. Current labs include a white count of 4.4, hemoglobin 14.2, hematocrit 40.2, platelet count of 176,000. PTT was 55.1. Sodium 136, potassium 4.5, chlorides 104, CO2 25, BUN 28, creatinine 1.15. Glucose was 158. Chest x-ray shows an improved left upper lobe infiltrate. Objective - Vital Signs Vital signs: Vital Signs Temp 97.5 F L 10/23/24 08:00 Pulse 129 H 10/23/24 08:00 Resp 20 10/23/24 08:00 BP 133/80 10/23/24 08:00 Pulse Ox 95 10/23/24 08:00 FiO2 Intake & Output 10/22/24 10/23/24 10/23/24 18:59 06:59 18:59 Intake Total 947.099 272.901 Output Total 800 Balance 947.099 272.901 -800 Weight 122.2 kg Intake: Intake, IV Titration 227.099 272.901 Amount Diltiazem 125 mg In 125 125 Dextrose 5% in Water 100 ml @ 5 MG/HR 5 mls/hr IV .Q24H [facility] Rx#:[id number] Heparin Sod,Pork in 0.45% 102.099 147.901 NaCl 25,000 unit In 0.45 % NaCl 1 250ml.bag @ 8.17 UNITS/KG/HR 10.006 mls/ hr IV .Q24H [facility] Rx#: [id number] Oral 720 Output: Urine 800 Other: # Voids 2 1 - Labs CBC & Chem 7: 10/23/24 05:50 10/23/24 05:50 Labs: Abnormal Lab Results - Last 24 Hours (Table) 10/22/24 10/23/24 10/23/24 Range/Units 19:05 05:50 05:50 WBC 4.44 L (4.50-10.00) 10*3/uL APTT 46.9 H (22.0-30.0) sec Sodium 136 L (137-145) mmol/L BUN 28 H (9-20) mg/dL Glucose 158 H (74-99) mg/dL Total Protein 6.1 L (6.3-8.2) g/dL 10/23/24 Range/Units 07:05 WBC (4.50-10.00) 10*3/uL APTT 55.1 H (22.0-30.0) sec Sodium (137-145) mmol/L BUN (9-20) mg/dL Glucose (74-99) mg/dL Total Protein (6.3-8.2) g/dL Microbiology - Last 24 Hours (Table) 10/22/24 10:48 Acid Fast Bacilli Smear - Preliminary Sputum Endotracheal 10/20/24 13:49 Gram Stain - Final Sputum Sputum Culture - Final
--- NOTE | 2024-10-23 14:10 | P.PN ---
Subjective Progress Note Date: 10/23/24 Hospital Course: Patient is a very pleasant 59-year-old male with a past medical history of hypertension, BPH, gout, colon cancer s/p resection, and obstructive sleep apnea CPAP dependent nightly. He presented to the emergency department with a chief complaint of shortness of breath and hemoptysis. Patient reports he just returned from an 8 day trip to [facility] last week and shortly after returning on Monday he began developing auditory symptoms since shortness of breath. Patie nt reports the symptoms progressively worsened and on Monday he went to the urgent care for evaluation. Patient reports he was started on a Augmentin, steroids, and inhaler with no improvement. Patient reports he has had subjective fevers, chills, diaphoresis, and productive cough. Patient reports today that shortness of breath has worsened and has been accompanied by multiple episodes of hemoptysis so he came to the hospital for further evaluation. Patient reports that his also has similar symptoms but that her started after he developed his and has not reached the severity of his as of yet. He denies having any known exposure to TB, reports staying in a condo in [facility], and visiting/exploring's a [employer]. Upon arrival to our facility, patient underwent evaluation in the emergency department vital signs upon arrival show blood pressure 163/77, heart rate 80, respiratory rate 18,. Temp 97.9 F, and SpO2 of 97% on room air. EKG showing normal sinus rhythm at 79 bpm with nonspecific T wave abnormality in lateral/inferior leads. Labs completed and reviewed. CBC showing bicytopenia with hemoglobin of 12.9 and platelet count of 132. WBC count is normal at 5.92. Coagulation profile normal findings. BMP showing non-anion gap metabolic acidosis with chloride of 109, bicarb of 21, and anion gap of 10. Mild prerenal azotemia with BUN of 21. Blood glucose 123. C alcium 8.4. Magnesium 1.8. Liver profile unremarkable. Troponin 0.016. Influenza A, influenza B, RSV, and COVID PCR negative. CTA chest negative for pulmonary emboli showing patchy left upper lung field infiltrate concerning for pneumonia, likely atypical pneumonia. Physical exam: Patient seen and fully evaluated at bedside this morning. He reports coughing is slightly improved and he is no longer producing sputum with cough. He denies further episodes of hemoptysis. He reports he continues to have night sweats, but breathing seems to have improved and he does not feel as short of breath. He continues to deny having any headache, lightheadedness, dizziness, chest pain, palpitations, or experiencing any numbness/tingling/weakness in his extremities. Patient updated negative AFB sputum and that we are still waiting on QuantiFERON TB Gold test. Vital signs reviewed and stable. General: Nontoxic, no distress and appears stated age. Derm: Skin warm and dry, normal coloration for ethnicity. Head: Atraumatic, normocephalic and symmetric. Eyes: EOM's intact, no lid lag, and anicteric sclera Mouth: no lip lesions, mucus membranes moist Cardiovascular: Irregularly irregular, no murmur, positive posterior tibial pulses bilaterally, and cap refill < 2 seconds. Lungs: Respirations even, regular, and unlabored on room air. Lungs diminished with no rhonchi, wheezes, rales, or crackles noted on examination this morning. Abdominal: soft, nontender to palpation, no guarding, no appreciable organomegaly Ext: ROM intact. No gross muscle atrophy, no edema, no contractures Neuro: Speech clear, face symmetrical and CN II-XII grossly intact with no noted focal neuro deficits Psych: Alert and oriented to person, place, time, and situation. Appropriate and pleasant affect. Assessment and Plan of Care: Left upper lobe pneumonia, suspected atypical pneumonia infection Bicytopenia, likely reactive secondary to above - Secondary to recent travel to [facility] and hemoptysis, we will need to rule out streptococcal pneumonia, staph aureus pneumonia, mycoplasma pneumonia, histoplasmosis, Legionella, and pulmonary TB - Continue Airborne precautions pending further results. - Pulmonary following, discussed plan of care with biophysics teacher and pulmonary FERMENTING CELLAR DROPPER. - Infectious disease following and discussed plan of care. - AFB sputum culture currently negative x 1. QuantiFERON TB Gold test remains pending. Mycoplasma pneumonia IgM was 0.85. Urine Legionella negative. Awaitin g results for Streptococcus urine antigen and histoplasmosis urine antigen. - IV antibiotics: Completed 3-day course of Zithromax 500 mg daily and to continue with with Rocephin 2 g daily (day 4) - Steroids. IV Solu-Medrol discontinued and patient to be started on Medrol Dosepak. - Telemetry monitoring. - Monitor pulse-oximetry - Duonebs 4 times daily and as needed for SOB and/or wheezing - Incentive Spirometry - Repeat morning chest x-ray showing persistent but improved infiltrate of left upper lobe. New onset atrial fibrillation with RVR - Patient currently maintaining RVR with an improved rate of 110's-120's, - Patient is on heparin infusion with therapeutic PTT of 55.1. He received first dose of Eliquis this morning and heparin scheduled to be discontinued 2 hours after. Patient then to continue Eliquis 5 mg twice daily. - Currently on Cardizem infusion at 15 mg/h for goal ventricular rate of 80-100. - Cardiology following, discussed plan of care with cardiac FERMENTING CELLAR DROPPER planning to discontinue Cardizem infusion and start patient on verapamil 40 mg 3 times daily. - Echocardiogram to be completed. - Patient to remain on continuous telemetry monitoring. - TSH normal findings at 2.530. Hypertension -Monitor vital signs and continue daily medication regimen with metoprolol 100 mg twice daily and lisinopril 40 mg daily Gout - Continue allopurinol 300 mg daily.. BPH -Continue Flomax 0.4 mg daily. Obstructive sleep apnea -Continue home CPAP nightly and while napping. Data and imaging reviewed: Morning labs reviewed. AFB sputum culture currently negative x 1. QuantiFERON TB Gold test remains pending. Mycoplasma pneumonia IgM was 0.85. CBC showing leukopenia with WBC count of 4.44 and resolution of thrombocytopenia with platelet count of 176. PTT therapeutic at 55.1. BMP showing prerenal azotemia with BUN of 28, creatinine 1.15, GFR of 69. Blood glucose 158. Magnesium 2.0. Calcium 8.6. Liver profile unremarkable. Repeat morning chest x-ray showing persistent but improved infiltrate of left upper lobe. Vital signs reviewed. Morning blood pressure 133/80, heart rate 129, respiratory rate 20, temp 97.5 F, SpO2 of 95% on room air CODE STATUS: Full code DVT prophylaxis: Low intensity heparin infusion Discussed with: Patient, RN, infectious disease physician, biophysics teacher, pulmonary FERMENTING CELLAR DROPPER and cardiology FERMENTING CELLAR DROPPER Anticipated discharge date: Pending clinical course Anticipated discharge place: Home Patient was seen independently by Nurse Practitioner. This document was prepared using [employer] dictation software. Please allow for errors in dray driver while rare they do occur. Quincy Cui FERMENTING CELLAR DROPPER rendered care for this patient independently, reviewed the findings and plan as documented in the note above and agree with plan. I did not physically speak with or examine the patient on this date. Objective - Vital Signs Vital signs: Vital Signs Temp 97.5 F L 10/23/24 08:00 Pulse 129 H 10/23/24 08:00 Resp 20 10/23/24 08:00 BP 133/80 10/23/24 08:00 Pulse Ox 95 10/23/24 08:00 FiO2 Intake & Output 10/22/24 10/23/24 10/23/24 18:59 06:59 18:59 Intake Total 947.099 272.901 Balance 947.099 272.901 Weight 122.2 kg Intake: Intake, IV Titration 227.099 272.901 Amount Diltiazem 125 mg In 125 125 Dextrose 5% in Water 100 ml @ 5 MG/HR 5 mls/hr IV .Q24H [facility] Rx#:[id number] Heparin Sod,Pork in 0.45% 102.099 147.901 NaCl 25,000 unit In 0.45 % NaCl 1 250ml.bag @ 8.17 UNITS/KG/HR 10.006 mls/ hr IV .Q24H [facility] Rx#: [id number] Oral 720 Other: # Voids 2 1 - Labs CBC & Chem 7: 10/23/24 05:50 10/23/24 05:50 Labs: Abnormal Lab Results - Last 24 Hours (Table) 10/22/24 10/22/24 10/23/24 Range/Units 09:21 19:05 05:50 WBC 4.44 L (4.50-10.00) 10*3/uL APTT 36.6 H 46.9 H (22.0-30.0) sec Sodium (137-145) mmol/L BUN (9-20) mg/dL Glucose (74-99) mg/dL Total Protein (6.3-8.2) g/dL 10/23/24 10/23/24 Range/Units 05:50 07:05 WBC (4.50-10.00) 10*3/uL APTT 55.1 H (22.0-30.0) sec Sodium 136 L (137-145) mmol/L BUN 28 H (9-20) mg/dL Glucose 158 H (74-99) mg/dL Total Protein 6.1 L (6.3-8.2) g/dL Microbiology - Last 24 Hours (Table) 10/22/24 10:48 Acid Fast Bacilli Smear - Preliminary Sputum Endotracheal 10/20/24 13:49 Gram Stain - Final Sputum Sputum Culture - Final
[2024-10-24] MEDS: methylPREDNISolone 4 MG TAB TAPER PO SCH (07:30)
[2024-10-24] MEDS: DEXTROSE 5% IN WATER 100 ML with AMIODARONE 150 MG IV ONE (10:47)
[2024-10-24] MEDS: AMIODARONE 360 MG in DEXTROSE 5% IN WATER 200 ML IV ONE (11:01)
--- NOTE | 2024-10-24 12:07 | P.PN ---
Subjective Progress Note Date: 10/24/24 Principal diagnosis: Pneumonia. This is a very pleasant 59-year-old male patient with a known history of gout, hypertension, obesity, obstructive sleep apnea on CPAP. 2 to 3 weeks ago the patient developed a dry nonproductive cough and felt it may be due to the increased dose of his lisinopril. After that he traveled to [facility] for 8 days[address] On the way home he had a layover in [place] where he spent the night in a hotel prior to arriving in [place]. Over the past week he had noted increasing shortness of breath, cough and congestion. He did have some night sweats. No n ausea, vomiting or diarrhea. No sick contacts. He was given a Medrol Dosepak and Augmentin in the outpatient setting without much improvement. He presented to the emergency room this morning. CT angiogram ruled out pulmonary embolism. There is a patchy left upper lobe lung field infiltrate suspicious for pneumonia. White count 5.9. Hemoglobin 12.9. Platelets 132. Sodium 140. Potassium 3.8. Bicarb 21. BUN 21. Creatinine 1.08. Glucose 123. Troponins negative x 2. Viral screen negative for influenza A/B, RSV, COVID. He is seen today in consultation on the regular medical floor. He is currently on AFB precautions, secondary to a comment by the radiologist suggesting possible TB exposure while traveling. No previous history of tuberculosis. He is awake and alert in no acute distress. Maintaining good O2 saturations in the 90s on room air oxygen. Afebrile. Hemodynamically stable. He does have a productive cough of dark brown sputum some blood-tinged sputum. Seen today on 10/21/2024, patient is comfortable, not in any distress continues to have some productive cough with thick green phlegm. Gram stain is nondiagnostic so far, patient is again feeling better, not in distress no fever no chills no hemoptysis, no chest pain. Urine Legionella antigen is negative WB C count today is 5.6 hemoglobin 13.4 basic metabolic profile is normal renal profile is normal. Liver enzymes are normal, chest x-ray today showed significant left upper lobe infiltrate. Consistent with pneumonia. Progress note dated October 22, 2024. 59-year-old male seen today in room 359. The patient is currently being evaluated for possible tuberculosis. Sputum sample, #1, was negative for AFB. The interferon gamma release assay test, is pending. The patient continues on Rocephin, and a Medrol Dosepak. He is on room air. Current laboratory data includes a white count of 3.6, hemoglobin 13.8, hematocrit 40.1, and a platelet count of 136,000. PTT is 36.6. Sodium 141, potassium 4, chlorides 106, CO2 26, BUN 17, creatinine 1.1. Glucose is 98. TSH is normal. Chest x-ray shows a l eft upper lobe infiltrate. Progress note dated October 23, 2024. 59-year-old male seen today in room 359. The patient is currently being evaluated for possible active tuberculosis. Actually, I doubt that to be the diagnosis. The patient had 2 sample sent for AFB smear and culture, both of which were negative. In addition, the interferon gamma release assay test, is currently pending. Currently, the patient is stable. He is on room air. The patient is not receiving any IV fluids. The patient was on heparin and Cardizem, for atrial fibrillation, but it has been discontinued. His Solu-Medr ol will be changed to a Medrol Dosepak. Current labs include a white count of 4.4, hemoglobin 14.2, hematocrit 40.2, platelet count of 176,000. PTT was 55.1. Sodium 136, potassium 4.5, chlorides 104, CO2 25, BUN 28, creatinine 1.15. Glucose was 158. Chest x-ray shows an improved left upper lobe infiltrate. Progress note dated October 24, 2024. 59-year-old male seen today in room 359. Isolation has been discontinued. His interferon gamma release assay test was negative. Also sputum samples, were negative for AFB smear and culture. Currently, he is using his home CPAP device. He is clinically stable. He is on room air. He is not receiving any IV fluids. No new labs today. Labs from October 15, have been reviewed. Chest x- ray from October 23, is improved. Objective - Vital Signs Vital signs: Vital Signs Temp 98.0 F 10/24/24 11:02 Pulse 118 H 10/24/24 11:02 Resp 16 10/24/24 11:02 BP 117/78 10/24/24 11:02 Pulse Ox 95 10/24/24 11:02 FiO2 Intake & Output 10/23/24 10/24/24 10/24/24 18:59 06:59 18:59 Intake Total 1480 240 Output Total 800 Balance 680 240 Weight 117.5 kg Intake: Oral 1480 240 Output: Urine 800 Other: Voiding Method Toilet # Voids 3 1 1 - Exam No acute distress, oriented 3. Currently on room air. HEENT examination is grossly unremarkable. Mucous membranes are moist. No oral lesions. Neck supple. Full range of motion. No adenopathy thyromegaly or neck vein distention. Cardiovascular examination reveals regular rhythm rate. S1-S2 normal. No S3 or S4. No discernible murmur noted. Lungs reveal clear breath sounds. Breath sounds are equal bilaterally. No adventitious lung sounds including wheezes rhonchi or crackles. Abdomen soft bowel sounds are heard. No masses or tenderness. Extremities are intact. No cyanosis clubbing or edema. Skin is without rash or lesion. Neurologic examination is brief but nonfocal. - Labs CBC & Chem 7: 10/23/24 05:50 10/23/24 05:50 Assessment and Plan Assessment: Acute community-acquired left upper lobe pneumonia, currently being evaluated for possible tuberculosis. Benign essential hypertension. History of gout. History of obstructive sleep apnea syndrome. Lifelong non-smoker. Obesity. Plan: Plan dated October 22, 2024. The patient continues on antibiotics as per infectious diseases. Initial sputum was negative for AFB. The patient is stable, awake and alert. No respiratory issues or problems. The interferon gamma release assay is currently pending. Labs, x-rays, medications are reviewed. We will continue to follow with patient, make recommendations along the way. Prognosis is thought to be good. Bronchoscopy not warranted at this time. Dictation was produced using [employer] dictation software. Please excuse any grammatical, word or spelling errors. Plan dated October 23, 2024. The patient is seen today in room 359. He is on room air. Solu-Medrol. Will be discontinued, in favor of a Medrol Dosepak. He is not receiving any IV fluids. Heparin, and Cardizem, which was given to the patient for atrial fibrillation/RVR, this to be discontinued. Sputum's x 2, and negative for AFB smear. Interferon gamma release assay test, is currently pending. Labs, x-r ays, and medications are reviewed. We will continue to follow the patient, make recommendations were appropriate. Prognosis is thought to be good. Chest x-ray is improved. Dictation was produced using [employer] software. Please excuse any grammatical, word or spelling errors. Plan dated October 24, 2024. The patient is seen today in room 359. He is on his home CPAP device. His interferon gamma release assay test, is negative. The patient has been removed from isolation. Labs, x-rays, medications are reviewed. Clinically, the patient is much improved. The patient is close to being discharged. Additional recommendations and suggestions are forthcoming. Yesterday's chest x-ray shows improvement. All labs, x-rays, and medications are reviewed. Dictation was produced using [employer] software. Please excuse any grammatical, word or spelling errors. Time with Patient: Less than 30
--- NOTE | 2024-10-24 12:14 | CA ---
Transthoracic Echo Report Name: Jose Luis Zuniga Age: 59 Gender: M : 1965 Exam Date: 10/23/2024 14:02 Exam Location: [facility] Ht (in): 71 Wt (lb): 270 Ordering Physician: Quincy Cui Attending/Referring Phys: [employer] Hydraulicker Kaylah Michelle RDCS Procedure CPT: Indications: new onset atrial fib Cardiac Hx: Technical Quality: Fair Contrast 1: Definity Total Dose (mL): 2 Contrast 2: Total Dose (mL): MEASUREMENTS (Male / Female) Normal Values 2D ECHO LV Diastolic Diameter PLAX 4.4 cm 4.2 - 5.9 / 3.9 - 5.3 cm LV Systolic Diameter PLAX 3.0 cm IVS Diastolic Thickness 1.4 cm 0.6 - 1.0 / 0.6 - 0.9 cm LVPW Diastolic Thickness 1.2 cm 0.6 - 1.0 / 0.6 - 0.9 cm LV Relative Wall Thickness 0.6 RV Internal Dim ED PLAX 1.9 cm Aortic Root Diameter 3.0 cm LA Systolic Diameter LX 3.9 cm 3.0 - 4.0 / 2.7 - 3.8 cm LA Volume 89.8 cm??? 18 - 58 / 22 - 52 cm??? LA Volume Index 35.6 cm???/m??? 16 - 28 cm???/m??? M-MODE Aortic Root Diameter MM 3.2 cm LA Systolic Diameter MM 5.5 cm LA Ao Ratio MM 1.7 AV Cusp Separation MM 1.8 cm DOPPLER MV Area PHT 2.5 cm??? Mitral E Point Velocity 121.8 cm/s Mitral A Point Velocity 1.1 cm/s Mitral E to A Ratio 106.1 MV Deceleration Time 302.7 ms TR Peak Velocity 194.0 cm/s TR Peak Gradient 15.0 mmHg Right Ventricular Systolic Press 20.0 mmHg FINDINGS Left Ventricle Left ventricular ejection fraction is estimated at 50 %. Mildly increased septal wall thickness. Left ventricular cavity size normal. Reduced global left ventricular systolic function. Right Ventricle Right ventricle not well visualized. Right ventricular systolic pressure within normal limits. Right Atrium Moderate right atrial dilatation. Left Atrium Moderately increased left atrial volume. Moderately increased left atrial area. Mitral Valve Structurally normal mitral valve. Trace to mild mitral regurgitation. No mitral stenosis. Aortic Valve Trileaflet aortic valve. No aortic valve stenosis or regurgitation. Tricuspid Valve Structurally normal tricuspid valve. Trace to mild tricuspid regurgitation. No tricuspid stenosis. Pulmonic Valve Structurally normal pulmonic valve. Trace pulmonic regurgitation. No pulmonic stenosis. Pericardium No pericardial or pleural effusion. Aorta Normal size aortic root and proximal ascending aorta. CONCLUSIONS Normal LV systolic function Technically difficult study for interpretation Previewed by: Dr. Dionicio Wise MD (Electronically Signed) Final Date: 24 Oct 2024 12:13
--- NOTE | 2024-10-24 12:14 | P.PN ---
Subjective HISTORY OF PRESENT ILLNESS: This is a 59-year-old male with a past medical history significant for hypertension and obesity. Patient does not follow with a hand hide stretcher. We have been asked to see the patient in consultation for A-fib with RVR. Patient examined at the bedside. Patient presented to the hospital with a chief complaint of shortness of breath and hemoptysis. Patient is currently in airborne isolation to rule out TB. Patient went into A-fib with RVR yesterday. He is currently on a Cardizem drip at 15 mg an hour. He remains in atrial fibrillation with RVR at the time of examination. Patient denies any known history of atrial fibrillation. DIAGNOSTICS: - EKG reveals A-fib with RVR. - Chest xray left upper lobe infiltrate. Correlate for pneumonia.. - Laboratory data: WBC 3.64. Hemoglobin 13.8. Platelet count 136. Sodium 141. Potassium 4.0. BUN 17. Creatinine 1.1. TSH 2.530 - Current home cardiac medications include lisinopril 40 mg daily and metoprolol succinate 100 mg daily. - No previous echocardiogram, stress test, or cardiac catheterization available in EMR for review 10/23/2024 Patient examined this morning at the bedside. Patient remains in atrial fibrillation with heart rates ranging [place] [address]. He remains on IV Cardizem at 15 mg an hour. He has been transition to Eliquis this morning. 2D echo remains pending. 10/24/2024 Patient examined this morning at the bedside. Patient without complaints of chest pain or pressure. He denies palpitations. Telemetry reveals atrial fibrillation with heart rate between [id number]. PHYSICAL EXAM: VITAL SIGNS: Reviewed. GENERAL: Well-developed in no acute distress. HEENT: Head is normocephalic. Pupils are equal, round. Sclerae anicteric. Mucous membranes of the mouth are moist. Neck supple. No JVD or thyromegaly LUNGS: Respirations even and unlabored. Lungs essentially clear to auscultation bilaterally. HEART: Tachycardic. Irregular rate and rhythm. S1 and S2 heard. ABDOMEN: Soft. Nondistended. Nontender. EXTREMITIES: Normal range of motion. No clubbing or cyanosis. Peripheral pulses intact. No lower extremity edema NEUROLOGIC: Awake and alert. Oriented x 3. ASSESSMENT: Shortness of breath with hemoptysis Left upper lobe pneumonia New onset atrial fibrillation with RVR Moderate coronary artery calcifications, per CTA History of hypertension Obesity: BMI 37.6 History of obstructive sleep apnea with home CPAP use PLAN: 2D echo pending. Await results. Continue anticoagulation with Eliquis Discontinue verapamil Decrease lisinopril to 20 mg at night Continue metoprolol succinate 100 mg twice daily Continue digoxin 125 mcg daily Begin IV amiodarone bolus and drip per protocol Continue telemetry monitoring Will consider PATTI and cardioversion in 4 weeks if patient remains in atrial fibrillation Further recommendations pending patient course Nurse practitioner note has been reviewed by physician. Signing provider agrees with the documented findings, assessment, and plan of care documented by FREIGHT ADJUSTER as a scribe. Objective - Vital Signs Vital signs: Vital Signs Temp 98.0 F 10/24/24 11:02 Pulse 118 H 10/24/24 11:02 Resp 16 10/24/24 11:02 BP 117/78 10/24/24 11:02 Pulse Ox 95 10/24/24 11:02 FiO2 Intake & Output 10/23/24 10/24/24 10/24/24 18:59 06:59 18:59 Intake Total 1480 240 Output Total 800 Balance 680 240 Weight 117.5 kg Intake: Oral 1480 240 Output: Urine 800 Other: Voiding Method Toilet # Voids 3 1 1 - Labs CBC & Chem 7: 10/23/24 05:50 10/23/24 05:50
--- NOTE | 2024-10-24 13:44 | P.PN ---
Subjective Progress Note Date: 10/24/24 Subjective: Patient seen and examined at bedside. No acute events overnight. Was having some lightheadedness with ambulation. Was in A-fib RVR this morning. Still continues to have some cough but no significant shortness of breath. Pertinent positives and negatives as discussed above, a complete review of systems was performed and all other systems are negative. Vitals Signs Reviewed. General: Nontoxic, no distress, appears at stated age Derm: Warm, dry Head: Atraumatic, normocephalic, symmetric Eyes: EOMI, no lid lag, anicteric sclera Mouth: No lip lesion, mucus membranes moist Cardiovascular: S1S2 irregular, no murmur Lungs: CTA bilateral, no rhonchi, no rales, no accessory muscle use Abdominal: Soft, nontender to palpation, no guarding, no appreciable organomegaly Ext: No gross muscle atrophy, no edema, no contractures Neuro: CN II-XI grossly intact, no focal neuro deficits Psych: Alert, oriented, appropriate affect Data Reviewed Today: Pertinent Labs: WBC 4.4, hemoglobin 14.2, creatinine 1.15, sodium 136, magnesium 2 Imaging: Echocardiogram report reviewed, shows normal LV systolic function Assessment and Plan: Active: Community-acquired pneumonia Bicytopenia, secondary to above - Completed course of azithromycin and IV ceftriaxone - Pulmonology note reviewed, continue Medrol Dosepak - Off isolation - Cultures largely negative, ID also following New onset A-fib with RVR - Continue Eliquis 5 twice daily, metoprolol 100 twice daily - Cardiology note reviewed, continue digoxin 125 mcg daily, due to persistently being in A-fib RVR, started on amiodarone drip - May need cardioversion at a later date Hypertension - Lisinopril decreased to 20 Gout - Continue allopurinol 300 mg daily BPH - Continue Flomax 0.4 daily LENO - Continue CPAP at night DVT ppx: Eliquis Code status: Full code Anticipated discharge place: Pending clinical course Anticipated discharge time: Pending clinical course Objective - Vital Signs Vital signs: Vital Signs Temp 98.0 F 10/24/24 11:02 Pulse 118 H 10/24/24 13:06 Resp 16 10/24/24 11:02 BP 117/78 10/24/24 11:02 Pulse Ox 95 10/24/24 11:02 FiO2 Intake & Output 0510/24/24 10/24/24 18:59 06:59 18:59 Intake Total 1480 240 Output Total 800 Balance 680 240 Weight 117.5 kg Intake: Oral 1480 240 Output: Urine 800 Other: Voiding Method Toilet # Voids 3 1 1 - Labs CBC & Chem 7: 10/23/24 05:50 10/23/24 05:50
--- NOTE | 2024-10-24 14:48 | P.PN ---
Subjective Progress Note Date: 10/23/24 Principal diagnosis: Reason for follow-up is pneumonia and question of TB Patient is a 59-year-old male with a past medical history significant for hypertension sleep apnea in this patient who recently came back from a trip to [facility] where he stayed for 8 days patient subsequent whelping respiratory symptoms failing outpatient Medrol Dosepak and Augmentin with a CT angiogram read by the radiologist as irregular opacity left upper lobe with differential of TB prompted this consultation. On today's evaluation that is 10/23/2024, Patient is afebrile this morning shilpa ent denies having any chest pain shortness of breath continue to have a cough was mostly dry, the patient is currently on room air, patient denies any abdominal pain no diarrhea no nausea no vomiting. Patient white count is 4.44, creatinine is 1.15 sputum culture negative sputum AFB stain negative QuantiFERON TB Gold test was negative Objective - Vital Signs Vital signs: Vital Signs Temp 97.5 F L 10/23/24 08:00 Pulse 129 H 10/23/24 08:00 Resp 20 10/23/24 08:00 BP 133/80 10/23/24 08:00 Pulse Ox 95 10/23/24 08:00 FiO2 Intake & Output 10/22/24 10/23/24 10/23/24 18:59 06:59 18:59 Intake Total 947.099 272.901 Output Total 800 Balance 947.099 272.901 -800 Weight 122.2 kg Intake: Intake, IV Titration 227.099 272.901 Amount Diltiazem 125 mg In 125 125 Dextrose 5% in Water 100 ml @ 5 MG/HR 5 mls/hr IV .Q24H [facility] Rx#:[id number] Heparin Sod,Pork in 0.45% 102.099 147.901 NaCl 25,000 unit In 0.45 % NaCl 1 250ml.bag @ 8.17 UNITS/KG/HR 10.006 mls/ hr IV .Q24H [facility] Rx#: [id number] Oral 720 Output: Urine 800 Other: # Voids 2 1 - Exam GENERAL DESCRIPTION: Middle aged male lying in bed in no distress RESPIRATORY SYSTEM: Unlabored breathing , decreased breath sounds at bases HEART: S1 S2 regular rate and rhythm , ABDOMEN: Soft , no tenderness EXTREMITIES: No edema feet - Labs CBC & Chem 7: 10/23/24 05:50 10/23/24 05:50 Labs: Abnormal Lab Results - Last 24 Hours (Table) 10/22/24 10/23/24 10/23/24 Range/Units 19:05 05:50 05:50 WBC 4.44 L (4.50-10.00) 10*3/uL APTT 46.9 H (22.0-30.0) sec Sodium 136 L (137-145) mmol/L BUN 28 H (9-20) mg/dL Glucose 158 H (74-99) mg/dL Total Protein 6.1 L (6.3-8.2) g/dL 10/23/24 Range/Units 07:05 WBC (4.50-10.00) 10*3/uL APTT 55.1 H (22.0-30.0) sec Sodium (137-145) mmol/L BUN (9-20) mg/dL Glucose (74-99) mg/dL Total Protein (6.3-8.2) g/dL Microbiology - Last 24 Hours (Table) 10/22/24 10:48 Acid Fast Bacilli Smear - Preliminary Sputum Endotracheal 10/20/24 13:49 Gram Stain - Final Sputum Sputum Culture - Final Assessment and Plan (1) Pneumonia Current Visit: Yes Status: Acute Code(s): J18.9 - PNEUMONIA, UNSPECIFIED ORGANISM SNOMED Code(s): 991110732 Plan: 1patient presented to hospital with shortness of breath cough congestion bringing up some sputum which is blood-streaked with evidence of left upper lobe pneumonia on the CT in this patient symptom has been going on for less than a week he did have recent history of travel to [facility] however with such small duration of symptoms and no evidence of any cavitation on the CT clinically doubt TB and more likely dealing with a regular community-acquired pneumonia 2patient QuantiFERON TB Gold test came back negative and sputum AFB stain x 1 has been negative sputum culture so far negative 3patient with Rocephin for community-acquired pneumonia with negative QuantiFERON TB Gold test and sputum be stain negative patient can be taken off the isolation discussed with [employer] for admitting team Dictation was produced using [employer] software. please excuse any grammatical, word or spelling errors.
--- NOTE | 2024-10-24 14:49 | P.PN ---
Subjective Progress Note Date: 10/24/24 Principal diagnosis: Reason for follow-up is pneumonia and question of TB Patient is a 59-year-old male with a past medical history significant for hypertension sleep apnea in this patient who recently came back from a trip to [facility] where he stayed for 8 days patient subsequent whelping respiratory symptoms failing outpatient Medrol Dosepak and Augmentin with a CT angiogram read by the radiologist as irregular opacity left upper lobe with differential of TB prompted this consultation. On today's evaluation that is 10/24/2024,the patient denies any fever or any ch ills, patient is breathing comfortably on room air, the patient denies chest pain cough is decreased intensity but mostly dry in nature no nausea vomiting no abdominal pain or diarrhea. No new lab has been obtained today Objective - Vital Signs Vital signs: Vital Signs Temp 98.0 F 10/24/24 11:02 Pulse 118 H 10/24/24 13:06 Resp 16 10/24/24 11:02 BP 117/78 10/24/24 11:02 Pulse Ox 95 10/24/24 11:02 FiO2 Intake & Output 10/23/24 10/24/24 10/24/24 18:59 06:59 18:59 Intake Total 1480 480 Output Total 800 Balance 680 480 Weight 117.5 kg Intake: Oral 1480 480 Output: Urine 800 Other: Voiding Method Toilet # Voids 3 1 1 - Exam GENERAL DESCRIPTION: Middle aged male lying in bed in no distress RESPIRATORY SYSTEM: Unlabored breathing , decreased breath sounds at bases HEART: S1 S2 regular rate and rhythm , ABDOMEN: Soft , no tenderness EXTREMITIES: No edema feet - Labs CBC & Chem 7: 10/23/24 05:50 10/23/24 05:50 Assessment and Plan (1) Pneumonia Current Visit: Yes Status: Acute Code(s): J18.9 - PNEUMONIA, UNSPECIFIED ORGANISM SNOMED Code(s): 761930244 Plan: 1patient presented to hospital with shortness of breath cough congestion bringing up some sputum which is blood-streaked with evidence of left upper lobe pneumonia on the CT in this patient symptom has been going on for less than a week he did have recent history of travel to [facility] however with such small duration of symptoms and no evidence of any cavitation on the CT clinically doubt TB and more likely dealing with a regular community-acquired pneumonia 2patient QuantiFERON TB Gold test came back negative and sputum AFB stain x 1 has been negative sputum culture so far negative patient has been taken off the TB isolation 3patient completed course of Rocephin and Zithromax for community-acquired pneumonia we will monitor closely off antibiotic therapy at this point Dictation was produced using [employer] dictation software. please excuse any grammatical, word or spelling errors. Time with Patient: Less than 30
[2024-10-24] MEDS: AMIODARONE 450 MG in DEXTROSE 5% IN WATER 250 ML IV SCH (16:20)
[2024-10-24] MEDS: TAMSULOSIN 0.4 MG CAP.ER.24H PO SCH (17:46)
[2024-10-24] MEDS ORDERED: VERAPAMIL 80 MG TAB PO SCH (21:00)
[2024-10-25] MEDS: AMIODARONE 200 MG TAB PO SCH (09:00)
--- NOTE | 2024-10-25 11:13 | P.PN ---
Subjective HISTORY OF PRESENT ILLNESS: This is a 59-year-old male with a past medical history significant for hypertension and obesity. Patient does not follow with a maintenance mechanic telephone. We have been asked to see the patient in consultation for A-fib with RVR. Patient examined at the bedside. Patient presented to the hospital with a chief complaint of shortness of breath and hemoptysis. Patient is currently in airborne isolation to rule out TB. Patient went into A-fib with RVR yesterday. He is currently on a Cardizem drip at 15 mg an hour. He remains in atrial fibrillation with RVR at the time of examination. Patient denies any known history of atrial fibrillation. DIAGNOSTICS: - EKG reveals A-fib with RVR. - Chest xray left upper lobe infiltrate. Correlate for pneumonia.. - Laboratory data: WBC 3.64. Hemoglobin 13.8. Platelet count 136. Sodium 141. Potassium 4.0. BUN 17. Creatinine 1.1. TSH 2.530 - Current home cardiac medications include lisinopril 40 mg daily and metoprolol succinate 100 mg daily. - No previous echocardiogram, stress test, or cardiac catheterization available in EMR for review 10/23/2024 Patient examined this morning at the bedside. Patient remains in atrial fibrillation with heart rates ranging between [address]. He remains on IV Cardizem at 15 mg an hour. He has been transition to Eliquis this morning. 2D echo remains pending. 10/24/2024 Patient examined this morning at the bedside. Patient without complaints of chest pain or pressure. He denies palpitations. Telemetry reveals atrial fibrillation with heart rate between [id number]. 10/25/2024 Patient examined this morning at the bedside. Patient without complaints of chest pain or pressure. He denies palpitations. Telemetry reveals atrial fib rillation with heart rate between 641885. He remains on IV amio. Echocardiogram completed revealed ejection fraction 50%, trace to mild MR, trace to mild TR PHYSICAL EXAM: VITAL SIGNS: Reviewed. GENERAL: Well-developed in no acute distress. HEENT: Head is normocephalic. Pupils are equal, round. Sclerae anicteric. Mucous membranes of the mouth are moist. Neck supple. No JVD or thyromegaly LUNGS: Respirations even and unlabored. Lungs essentially clear to auscultation bilaterally. HEART: Tachycardic. Irregular rate and rhythm. S1 and S2 heard. ABDOMEN: Soft. Nondistended. Nontender. EXTREMITIES: Normal range of motion. No clubbing or cyanosis. Peripheral pulses intact. No lower extremity edema NEUROLOGIC: Awake and alert. Oriented x 3. ASSESSMENT: Shortness of breath with hemoptysis Left upper lobe pneumonia New onset atrial fibrillation with RVR Moderate coronary artery calcifications, per CTA History of hypertension Obesity: BMI 37.6 History of obstructive sleep apnea with home CPAP use PLAN: Continue anticoagulation with Eliquis Continue digoxin 125 mcg daily Continue metoprolol succinate 100 mg twice daily Begin oral amiodarone 200 mg twice daily Continue telemetry monitoring Will consider PATTI and cardioversion in 4 weeks if patient remains in atrial fibrillation Further recommendations pending patient course Nurse practitioner note has been reviewed by physician. Signing provider agrees with the documented findings, assessment, and plan of care documented by PASSENGER TIRE BUILDER as a scribe. Objective - Vital Signs Vital signs: Vital Signs Temp 97.5 F L 10/25/24 08:50 Pulse 75 10/25/24 08:50 Resp 16 10/25/24 08:50 BP 127/75 10/25/24 08:50 Pulse Ox 95 10/25/24 08:50 FiO2 Intake & Output 10/24/24 10/25/24 10/25/24 18:59 06:59 18:59 Intake Total 960 260 Output Total 450 Balance 960 -450 260 Weight 117.4 kg Intake: IV 10 Invasive Line 2 10 Intake, IV Titration 250 Amount Amiodarone 450 mg In 250 Dextrose 5% in Water 250 ml @ 0.5 MG/MIN 16.667 mls/hr IV .Q15H [facility] Rx#: [id number] Oral 960 Output: Urine 450 Other: Voiding Method Toilet Toilet Toilet # Voids 1 1 - Labs CBC & Chem 7: 10/23/24 05:50 10/23/24 05:50
--- NOTE | 2024-10-25 11:44 | P.PN ---
Subjective Progress Note Date: 10/25/24 Principal diagnosis: Pneumonia. This is a very pleasant 59-year-old male patient with a known history of gout, hypertension, obesity, obstructive sleep apnea on CPAP. 2 to 3 weeks ago the patient developed a dry nonproductive cough and felt it may be due to the increased dose of his lisinopril. After that he traveled to [facility] for [address] On the way home he had a layover in [place] where he spent the night in a hotel prior to arriving in [place]. Over the past week he had noted increasing shortness of breath, cough and congestion. He did have some night sweats. No n ausea, vomiting or diarrhea. No sick contacts. He was given a Medrol Dosepak and Augmentin in the outpatient setting without much improvement. He presented to the emergency room this morning. CT angiogram ruled out pulmonary embolism. There is a patchy left upper lobe lung field infiltrate suspicious for pneumonia. White count 5.9. Hemoglobin 12.9. Platelets 132. Sodium 140. Potassium 3.8. Bicarb 21. BUN 21. Creatinine 1.08. Glucose 123. Troponins negative x 2. Viral screen negative for influenza A/B, RSV, COVID. He is seen today in consultation on the regular medical floor. He is currently on AFB precautions, secondary to a comment by the radiologist suggesting possible TB exposure while traveling. No previous history of tuberculosis. He is awake and alert in no acute distress. Maintaining good O2 saturations in the 90s on room air oxygen. Afebrile. Hemodynamically stable. He does have a productive cough of dark brown sputum some blood-tinged sputum. Seen today on 10/21/2024, patient is comfortable, not in any distress continues to have some productive cough with thick green phlegm. Gram stain is nondiagnostic so far, patient is again feeling better, not in distress no fever no chills no hemoptysis, no chest pain. Urine Legionella antigen is negative WB C count today is 5.6 hemoglobin 13.4 basic metabolic profile is normal renal profile is normal. Liver enzymes are normal, chest x-ray today showed significant left upper lobe infiltrate. Consistent with pneumonia. Progress note dated October 22, 2024. 59-year-old male seen today in room 359. The patient is currently being evaluated for possible tuberculosis. Sputum sample, #1, was negative for AFB. The interferon gamma release assay test, is pending. The patient continues on Rocephin, and a Medrol Dosepak. He is on room air. Current laboratory data includes a white count of 3.6, hemoglobin 13.8, hematocrit 40.1, and a platelet count of 136,000. PTT is 36.6. Sodium 141, potassium 4, chlorides 106, CO2 26, BUN 17, creatinine 1.1. Glucose is 98. TSH is normal. Chest x-ray shows a l eft upper lobe infiltrate. Progress note dated October 23, 2024. 59-year-old male seen today in room 359. The patient is currently being evaluated for possible active tuberculosis. Actually, I doubt that to be the diagnosis. The patient had 2 sample sent for AFB smear and culture, both of which were negative. In addition, the interferon gamma release assay test, is currently pending. Currently, the patient is stable. He is on room air. The patient is not receiving any IV fluids. The patient was on heparin and Cardizem, for atrial fibrillation, but it has been discontinued. His Solu-Medr ol will be changed to a Medrol Dosepak. Current labs include a white count of 4.4, hemoglobin 14.2, hematocrit 40.2, platelet count of 176,000. PTT was 55.1. Sodium 136, potassium 4.5, chlorides 104, CO2 25, BUN 28, creatinine 1.15. Glucose was 158. Chest x-ray shows an improved left upper lobe infiltrate. Progress note dated October 24, 2024. 59-year-old male seen today in room 359. Isolation has been discontinued. His interferon gamma release assay test was negative. Also sputum samples, were negative for AFB smear and culture. Currently, he is using his home CPAP device. He is clinically stable. He is on room air. He is not receiving any IV fluids. No new labs today. Labs from October 15, have been reviewed. Chest x- ray from October 23, is improved. Progress note dated October 25, 2024. The patient is seen today in room 359. He is on room air. The patient currently had some issues with atrial fibrillation, and RVR, was placed on amiodarone, 0.5 mg/min. Clinically, from the pulmonary standpoint, the patient is doing very well. Laboratory kaufman, nothing new to report. In addition, no recent chest x-ray. Objective - Vital Signs Vital signs: Vital Signs Temp 97.5 F L 10/25/24 08:50 Pulse 75 10/25/24 08:50 Resp 16 10/25/24 08:50 BP 127/75 10/25/24 08:50 Pulse Ox 95 10/25/24 08:50 FiO2 Intake & Output 10/24/24 10/25/24 10/25/24 18:59 06:59 18:59 Intake Total 960 260 Output Total 450 Balance 960 -450 260 Weight 117.4 kg Intake: IV 10 Invasive Line 2 10 Intake, IV Titration 250 Amount Amiodarone 450 mg In 250 Dextrose 5% in Water 250 ml @ 0.5 MG/MIN 16.667 mls/hr IV .Q15H [facility] Rx#: [id number] Oral 960 Output: Urine 450 Other: Voiding Method Toilet Toilet Toilet # Voids 1 1 2 - Exam No acute distress, oriented 3. Currently on room air. HEENT examination is grossly unremarkable. Mucous membranes are moist. No oral lesions. Neck supple. Full range of motion. No adenopathy thyromegaly or neck vein distention. Cardiovascular examination reveals an irregular rhythm and rate. S1-S2 normal. No S3 or S4. No discernible murmur noted. Lungs reveal clear breath sounds. Breath sounds are equal bilaterally. No adventitious lung sounds including wheezes rhonchi or crackles. Abdomen soft bowel sounds are heard. No masses or tenderness. Extremities are intact. No cyanosis clubbing or edema. Skin is without rash or lesion. Neurologic examination is brief but nonfocal. - Labs CBC & Chem 7: 10/23/24 05:50 10/23/24 05:50 Assessment and Plan Assessment: Acute community-acquired left upper lobe pneumonia. No evidence to suggest pulmonary tuberculosis. Benign essential hypertension. Paroxysmal atrial fibrillation/RVR. History of gout. History of obstructive sleep apnea syndrome. Lifelong non-smoker. Obesity. Plan: Plan dated October 22, 2024. The patient continues on antibiotics as per infectious diseases. Initial sputum was negative for AFB. The patient is stable, awake and alert. No respiratory issues or problems. The interferon gamma release assay is currently pending. Labs, x-rays, medications are reviewed. We will continue to follow with pat ient, make recommendations along the way. Prognosis is thought to be good. Bronchoscopy not warranted at this time. Dictation was produced using [employer] software. Please excuse any grammatical, word or spelling errors. Plan dated October 23, 2024. The patient is seen today in room 359. He is on room air. Solu-Medrol. Will be discontinued, in favor of a Medrol Dosepak. He is not receiving any IV fluids. Heparin, and Cardizem, which was given to the patient for atrial fibrillation/RVR, this to be discontinued. Sputum's x 2, and negative for AFB smear. Interferon gamma release assay test, is currently pending. Labs, x- rays, and medications are reviewed. We will continue to follow the patient, make recommendations were appropriate. Prognosis is thought to be good. Chest x-ray is improved. Dictation was produced using [employer] software. Please excuse any grammatical, word or spelling errors. Plan dated October 24, 2024. The patient is seen today in room 359. He is on his home CPAP device. His interferon gamma release assay test, is negative. The patient has been removed from isolation. Labs, x-rays, medications are reviewed. Clinically, the patient is much improved. The patient is close to being discharged. Additional recommendations and suggestions are forthcoming. Yesterday's chest x-ray shows improvement. All labs, x-rays, and medications are reviewed. Dictation was produced using [employer] software. Please excuse any grammatical, word or spelling errors. Plan dated October 25, 2024. Clinically, the patient is doing well from the pulmonary standpoint. He denies any shortness of breath, cough, wheezing, chest tightness, or phlegm production. Sputum's have been negative for AFB smear and culture. Interferon gamma release assay test was negative. The patient apparently had some issues with atrial fibrillation and RVR, and was placed back on amiodarone at 0.5 mg/min. The patient is currently on room air. Labs, x-rays, and all medications are reviewed. Prognosis is guarded. Dictation was produced using [employer] software. Please excuse any grammatical, word or spelling errors. Time with Patient: Less than 30
--- NOTE | 2024-10-25 15:25 | P.PN ---
Subjective Progress Note Date: 10/25/24 Principal diagnosis: Reason for follow-up is pneumonia and question of TB Patient is a 59-year-old male with a past medical history significant for hypertension sleep apnea in this patient who recently came back from a trip to [facility] where he stayed for 8 days patient subsequent whelping respiratory symptoms failing outpatient Medrol Dosepak and Augmentin with a CT angiogram read by the radiologist as irregular opacity left upper lobe with differential of TB prompted this consultation. On today's evaluation that is 10/25/2024,the patient remains to be afebrile, david genoveva is on room air not requiring supplemental oxygen and denies any shortness of breath no chest pain cough is decreased intensity mostly dry in nature.Patient denies having any nausea or vomiting, no abdominal pain and no diarrhea no new labs has been obtained today Objective - Vital Signs Vital signs: Vital Signs Temp 97.9 F 10/25/24 11:30 Pulse 94 10/25/24 11:30 Resp 16 10/25/24 11:30 BP 127/79 10/25/24 11:30 Pulse Ox 96 10/25/24 11:30 FiO2 Intake & Output 10/24/24 10/25/24 10/25/24 18:59 06:59 18:59 Intake Total 960 260 Output Total 450 Balance 960 -450 260 Weight 117.4 kg Intake: IV 10 Invasive Line 2 10 Intake, IV Titration 250 Amount Amiodarone 450 mg In 250 Dextrose 5% in Water 250 ml @ 0.5 MG/MIN 16.667 mls/hr IV .Q15H [facility] Rx#: [id number] Oral 960 Output: Urine 450 Other: Voiding Method Toilet Toilet Toilet # Voids 1 1 2 - Exam GENERAL DESCRIPTION: Middle aged male lying in bed in no distress RESPIRATORY SYSTEM: Unlabored breathing , decreased breath sounds at bases HEART: S1 S2 regular rate and rhythm , ABDOMEN: Soft , no tenderness EXTREMITIES: No edema feet - Labs CBC & Chem 7: 10/23/24 05:50 10/23/24 05:50 Assessment and Plan (1) Pneumonia Current Visit: Yes Status: Acute Code(s): J18.9 - PNEUMONIA, UNSPECIFIED ORGANISM SNOMED Code(s): 641009244 Plan: 1patient presented to hospital with shortness of breath cough congestion bringing up some sputum which is blood-streaked with evidence of left upper lobe pneumonia on the CT in this patient symptom has been going on for less than a week he did have recent history of travel to [facility] however with such small duration of symptoms and no evidence of any cavitation on the CT clinically doubt TB and more likely dealing with a regular community-acquired pneumonia 2patient QuantiFERON TB Gold test came back negative and sputum AFB stain x 1 has been negative sputum culture so far negative patient has been taken off the TB isolation 3patient completed course of Rocephin and Zithromax for community-acquired pneumonia, currently seems to be doing well and will be monitored closely off antibiotic therapy Dictation was produced using [employer] dictation software. please excuse any grammatical, word or spelling errors. Time with Patient: Less than 30
--- NOTE | 2024-10-25 16:43 | P.PN ---
Subjective Progress Note Date: 10/25/24 Principal diagnosis: Pneumonia Patient seen and examined at bedside. No acute events overnight Still continues to have some cough but no significant shortness of breath. Remains in A fib with RVR, rate in the 110-120s overnight. Remains on amiodarone drip. No labs this morning. Pertinent positives and negatives as discussed above, a complete review of systems was performed and all other systems are negative. Vitals Signs Reviewed. General: Nontoxic, no distress, appears at stated age Derm: Warm, dry Head: Atraumatic, normocephalic, symmetric Eyes: EOMI, no lid lag, anicteric sclera Mouth: No lip lesion, mucus membranes moist Cardiovascular: Irregular rate and rhythm, no murmur Lungs: CTA bilateral, no rhonchi, no rales, no accessory muscle use Abdominal: Soft, nontender to palpation, no guarding, no appreciable organomegaly Ext: No gross muscle atrophy, no edema, no contractures Neuro: CN II-XI grossly intact, no focal neuro deficits Psych: Alert, oriented, appropriate affect Data Reviewed Today: Pertinent Labs: Imaging: Assessment and Plan: Active: Community-acquired pneumonia Bicytopenia, secondary to above - Completed course of azithromycin and IV ceftriaxone - Pulmonology note reviewed, continue Medrol Dosepak - Off isolation - Cultures largely negative, ID also following New onset A-fib with RVR - Continue Eliquis 5 twice daily, metoprolol 100 twice daily - Cardiology note reviewed, continue digoxin 125 mcg daily, transitioned from amiodarone drip to amiodarone 200 mg daily. - May need cardioversion/PATTI at a later date Hypertension - Lisinopril decreased to 20 mg daily Gout - Continue allopurinol 300 mg daily BPH - Continue Flomax 0.4 daily LEON - Continue CPAP at night DVT ppx: Eliquis Code status: Full code Anticipated discharge place: Pending clinical stability Anticipated discharge time: Pending clinical stability Objective - Vital Signs Vital signs: Vital Signs Temp 97.9 F 10/25/24 11:30 Pulse 101 H 10/25/24 16:33 Resp 14 10/25/24 16:33 BP 134/87 10/25/24 16:33 Pulse Ox 97 10/25/24 16:33 FiO2 Intake & Output 10/24/24 10/25/24 10/25/24 18:59 06:59 18:59 Intake Total 960 260 Output Total 450 Balance 960 -450 260 Weight 117.4 kg Intake: IV 10 Invasive Line 2 10 Intake, IV Titration 250 Amount Amiodarone 450 mg In 250 Dextrose 5% in Water 250 ml @ 0.5 MG/MIN 16.667 mls/hr IV .Q15H [facility] Rx#: [id number] Oral 960 Output: Urine 450 Other: Voiding Method Toilet Toilet Toilet # Voids 1 1 2 - Labs CBC & Chem 7: 10/23/24 05:50 10/23/24 05:50
[2024-10-25] MEDS: lisinopriL 20 MG TAB PO SCH (19:50)
[2024-10-26 08:18] VITALS: BMI 35.6
[2024-10-26 08:26] VITALS: BP 109/64; RESP 18; TEMP 97.4
[2024-10-26 11:38] VITALS: PULSE 56
--- NOTE | 2024-10-26 12:44 | P.PN ---
Subjective Progress Note Date: 10/26/24 Principal diagnosis: Pneumonia. This is a very pleasant 59-year-old male patient with a known history of gout, hypertension, obesity, obstructive sleep apnea on CPAP. 2 to 3 weeks ago the patient developed a dry nonproductive cough and felt it may be due to the increased dose of his lisinopril. After that he traveled to [facility] for 8 days. On the way home he had a layover in [place] where he spent the night in a hotel prior to arriving in [place]. Over the past week he had noted increasing shortness of breath, cough and congestion. He did have some night sweats. No n ausea, vomiting or diarrhea. No sick contacts. He was given a Medrol Dosepak and Augmentin in the outpatient setting without much improvement. He presented to the emergency room this morning. CT angiogram ruled out pulmonary embolism. There is a patchy left upper lobe lung field infiltrate suspicious for pneumonia. White count 5.9. Hemoglobin 12.9. Platelets 132. Sodium 140. Potassium 3.8. Bicarb 21. BUN 21. Creatinine 1.08. Glucose 123. Troponins negative x 2. Viral screen negative for influenza A/B, RSV, COVID. He is seen today in consultation on the regular medical floor. He is currently on AFB precautions, secondary to a comment by the radiologist suggesting possible TB exposure while traveling. No previous history of tuberculosis. He is awake and alert in no acute distress. Maintaining good O2 saturations in the 90s on room air oxygen. Afebrile. Hemodynamically stable. He does have a productive cough of dark brown sputum some blood-tinged sputum. Seen today on 10/21/2024, patient is comfortable, not in any distress continues to have some productive cough with thick green phlegm. Gram stain is nondiagnostic so far, patient is again feeling better, not in distress no fever no chills no hemoptysis, no chest pain. Urine Legionella antigen is negative WB C count today is 5.6 hemoglobin 13.4 basic metabolic profile is normal renal profile is normal. Liver enzymes are normal, chest x-ray today showed significant left upper lobe infiltrate. Consistent with pneumonia. Progress note dated October 22, 2024. 59-year-old male seen today in room 359. The patient is currently being evaluated for possible tuberculosis. Sputum sample, #1, was negative for AFB. The interferon gamma release assay test, is pending. The patient continues on Rocephin, and a Medrol Dosepak. He is on room air. Current laboratory data includes a white count of 3.6, hemoglobin 13.8, hematocrit 40.1, and a platelet count of 136,000. PTT is 36.6. Sodium 141, potassium 4, chlorides 106, CO2 26, BUN 17, creatinine 1.1. Glucose is 98. TSH is normal. Chest x-ray shows a l eft upper lobe infiltrate. Progress note dated October 23, 2024. 59-year-old male seen today in room 359. The patient is currently being evaluated for possible active tuberculosis. Actually, I doubt that to be the diagnosis. The patient had 2 sample sent for AFB smear and culture, both of which were negative. In addition, the interferon gamma release assay test, is currently pending. Currently, the patient is stable. He is on room air. The patient is not receiving any IV fluids. The patient was on heparin and Cardizem, for atrial fibrillation, but it has been discontinued. His Solu-Medr ol will be changed to a Medrol Dosepak. Current labs include a white count of 4.4, hemoglobin 14.2, hematocrit 40.2, platelet count of 176,000. PTT was 55.1. Sodium 136, potassium 4.5, chlorides 104, CO2 25, BUN 28, creatinine 1.15. Glucose was 158. Chest x-ray shows an improved left upper lobe infiltrate. Progress note dated October 24, 2024. 59-year-old male seen today in room 359. Isolation has been discontinued. His interferon gamma release assay test was negative. Also sputum samples, were negative for AFB smear and culture. Currently, he is using his home CPAP device. He is clinically stable. He is on room air. He is not receiving any IV fluids. No new labs today. Labs from October 15, have been reviewed. Chest x- ray from October 23, is improved. Progress note dated October 25, 2024. The patient is seen today in room 359. He is on room air. The patient currently had some issues with atrial fibrillation, and RVR, was placed on amiodarone, 0.5 mg/min. Clinically, from the pulmonary standpoint, the patient is doing very well. Laboratory kaufman, nothing new to report. In addition, no recent chest x-ray. Progress note dated October 26, 2024. 59-year-old male seen today in room 359. He is resting comfortably in bed. He is awake and alert. No respiratory distress. Yesterday he was on amiodarone drip. Currently he is on p.o. amiodarone. He is not receiving any fluids. From our perspective, the patient could be discharged. He denies any shortness of breath, cough, wheezing, chest tightness, or phlegm production. No new labs today. Objective - Vital Signs Vital signs: Vital Signs Temp 97.4 F L 10/26/24 08:25 Pulse 56 L 10/26/24 08:25 Resp 18 10/26/24 08:25 BP 109/64 10/26/24 08:25 Pulse Ox 97 10/26/24 08:25 FiO2 Intake & Output 10/25/24 10/26/24 10/26/24 18:59 06:59 18:59 Intake Total 260 1080 300 Balance 260 1080 300 Weight 115.7 kg 115.7 kg Intake: IV 10 Invasive Line 2 10 Intake, IV Titration 250 Amount Amiodarone 450 mg In 250 Dextrose 5% in Water 250 ml @ 0.5 MG/MIN 16.667 mls/hr IV .Q15H [facility] Rx#: [id number] Oral 1080 300 Other: Voiding Method Toilet Toilet # Voids 2 1 - Exam No acute distress, oriented 3. Currently on room air. HEENT examination is grossly unremarkable. Mucous membranes are moist. No oral lesions. Neck supple. Full range of motion. No adenopathy thyromegaly or neck vein distention. Cardiovascular examination reveals a regular rhythm and rate. S1-S2 normal. No S3 or S4. No discernible murmur noted. Lungs reveal clear breath sounds. Breath sounds are equal bilaterally. No adventitious lung sounds including wheezes rhonchi or crackles. Abdomen soft bowel sounds are heard. No masses or tenderness. Extremities are intact. No cyanosis clubbing or edema. Skin is without rash or lesion. Neurologic examination is brief but nonfocal. - Labs CBC & Chem 7: 10/23/24 05:50 10/23/24 05:50 Assessment and Plan Assessment: Acute community-acquired left upper lobe pneumonia, improved. No evidence to suggest pulmonary tuberculosis. Benign essential hypertension. Paroxysmal atrial fibrillation/RVR. History of gout. History of obstructive sleep apnea syndrome. Lifelong non-smoker. Obesity. Plan: Plan dated October 22, 2024. The patient continues on antibiotics as per infectious diseases. Initial sputum was negative for AFB. The patient is stable, awake and alert. No respiratory issues or problems. The interferon gamma release assay is currently pending. Labs, x-rays, medications are reviewed. We will continue to follow with patient, make recommendations along the way. Prognosis is thought to be good. Bronchoscopy not warranted at this time. Dictation was produced using [employer] software. Please excuse any grammatical, word or spelling errors. Plan dated October 23, 2024. The patient is seen today in room 359. He is on room air. Solu-Medrol. Will be discontinued, in favor of a Medrol Dosepak. He is not receiving any IV fluids. Heparin, and Cardizem, which was given to the patient for atrial fibrillation/RVR, this to be discontinued. Sputum's x 2, and negative for AFB smear. Interferon gamma release assay test, is currently pending. Labs, x- rays, and medications are reviewed. We will continue to follow the patient, make recommendations were appropriate. Prognosis is thought to be good. Chest x-ray is improved. Dictation was produced using [employer] software. Please excuse any grammatical, word or spelling errors. Plan dated October 24, 2024. The patient is seen today in room 359. He is on his home CPAP device. His interferon gamma release assay test, is negative. The patient has been removed from isolation. Labs, x-rays, medications are reviewed. Clinically, the patien t is much improved. The patient is close to being discharged. Additional recommendations and suggestions are forthcoming. Yesterday's chest x-ray shows improvement. All labs, x-rays, and medications are reviewed. Dictation was produced using [employer] software. Please excuse any grammatical, word or spelling errors. Plan dated October 25, 2024. Clinically, the patient is doing well from the pulmonary standpoint. He denies any shortness of breath, cough, wheezing, chest tightness, or phlegm production. Sputum's have been negative for AFB smear and culture. Interferon gamma release assay test was negative. The patient apparently had some issues with atrial fibrillation and RVR, and was placed back on amiodarone at 0.5 mg/min. The patient is currently on room air. Labs, x-rays, and all medications are reviewed. Prognosis is guarded. Dictation was produced using [employer] software. Please excuse any grammatical, word or spelling errors. Plan dated October 26, 2024. The patient is seen today in room 359. The patient is on room air. The patient is not receiving any IV fluids. The patient is currently in sinus rhythm. Yesterday, the patient was on IV amiodarone. Currently he is on p.o. amiodarone. Labs, x-rays, and medications are reviewed. Chest x-ray is certainly improved. We will continue to follow make recommendations. Dictation was produced using [employer] software. Please excuse any grammatical, word or spelling errors. Time with Patient: Less than 30
--- NOTE | 2024-10-26 14:52 | P.PN ---
Subjective Progress Note Date: 10/26/24 HISTORY OF PRESENT ILLNESS: This is a 59-year-old male with a past medical history significant for hype rtension and obesity. Patient does not follow with a regional driver. We have been asked to see the patient in consultation for A-fib with RVR. Patient examined at the bedside. Patient presented to the hospital with a chief complaint of shortness of breath and hemoptysis. Patient is currently in airborne isolation to rule out TB. Patient went into A-fib with RVR yesterday. He is currently on a Cardizem drip at 15 mg an hour. He remains in atrial fibrillation with RVR at the time of examination. Patient denies any known history of atrial fibrillation. DIAGNOSTICS: - EKG reveals A-fib with RVR. - Chest xray left upper lobe infiltrate. Correlate for pneumonia.. - Laboratory data: WBC 3.64. Hemoglobin 13.8. Platelet count 136. Sodium 141. Potassium 4.0. BUN 17. Creatinine 1.1. TSH 2.530 - Current home cardiac medications include lisinopril 40 mg daily and metoprolol succinate 100 mg daily. - No previous echocardiogram, stress test, or cardiac catheterization available in EMR for review 10/23/2024 Patient examined this morning at the bedside. Patient remains in atrial fibrill ation with heart rates ranging between [address]. He remains on IV Cardizem at 15 mg an hour. He has been transition to Eliquis this morning. 2D echo remains pending. 10/24/2024 Patient examined this morning at the bedside. Patient without complaints of chest pain or pressure. He denies palpitations. Telemetry reveals atrial fibrillation with heart rate between [id number]. 10/25/2024 Patient examined this morning at the bedside. Patient without complaints of chest pain or pressure. He denies palpitations. Telemetry reveals atrial fibrillation with heart rate between [id number]. He remains on IV amio. Echocardiogram completed revealed ejection fraction 50%, trace to mild MR, trace to mild TR 10/26/2024 He reports that he has been feeling the same. He did rhythm overnight. He denies any chest pain or pressure. No shortness of breath, dizziness, syncope. He still has cough. PHYSICAL EXAM: VITAL SIGNS: Reviewed. GENERAL: Well-developed in no acute distress. HEENT: Head is normocephalic. Pupils are equal, round. Sclerae anicteric. Mucous membranes of the mouth are moist. Neck supple. LUNGS: Respirations even and unlabored. Lungs essentially clear to auscultation bilaterally. HEART: Tachycardic. Regular rate and rhythm. S1 and S2 heard. ABDOMEN: Soft. Nondistended. Nontender. EXTREMITIES: Normal range of motion. No clubbing or cyanosis. Peripheral pulses intact. No lower extremity edema NEUROLOGIC: Awake and alert. Oriented x 3. ASSESSMENT: Shortness of breath with hemoptysis Left upper lobe pneumonia New onset atrial fibrillation with RVR Moderate coronary artery calcifications, per CTA History of hypertension Obesity: BMI 37.6 History of obstructive sleep apnea with home CPAP use PLAN: Continue anticoagulation with Eliquis Continue digoxin 125 mcg daily Continue metoprolol succinate 100 mg twice daily Continue for 1 week then decrease to 200 mg daily amiodarone 200 mg twice daily Okay to discharge home from a cardiac standpoint. Follow-up in office in 1 week. Nurse practitioner note has been reviewed by Dr. Gaona. Signing provider agrees with the documented findings, assessment, and plan of care documented by LOOM OPERATOR APPRENTICE as a scribe. Objective - Vital Signs Vital signs: Vital Signs Temp 97.8 F 10/25/24 20:00 Pulse 56 L 10/26/24 04:00 Resp 16 10/26/24 04:00 BP 99/64 10/26/24 04:00 Pulse Ox 95 10/26/24 04:00 FiO2 Intake & Output 10/25/24 10/26/24 10/26/24 18:59 06:59 18:59 Intake Total 260 1080 Balance 260 1080 Weight 115.7 kg Intake: IV 10 Invasive Line 2 10 Intake, IV Titration 250 Amount Amiodarone 450 mg In 250 Dextrose 5% in Water 250 ml @ 0.5 MG/MIN 16.667 mls/hr IV .Q15H [facility] Rx#: [id number] Oral 1080 Other: Voiding Method Toilet Toilet # Voids 2 1 - Labs CBC & Chem 7: 10/23/24 05:50 10/23/24 05:50
--- NOTE | 2024-10-26 15:12 | P.DS ---
Providers Date of admission: 10/20/24 10:08 Attending physician: Dylan Matos Consults: 10/20/24 10:07 Consult Physician Routine Consulting Provider: Owen Gregory Consult Reason/Comments: pna Do you want consulting provider notified?: Yes 10/21/24 08:45 Consult Physician Routine Consulting Provider: Dionicio Wise Consult Reason/Comments: new onset atrial fib with RVR Do you want consulting provider notified?: Yes 10/21/24 15:27 Consult Physician Routine Consulting Provider: Akira Piña Consult Reason/Comments: pneumonia w/ hemoptysis recent travel to [facility] Do you want consulting provider notified?: Yes Primary care physician: Morris Ortega MD Hospital Course: Discharge Diagnosis: Pneumonia A fib with RVR Hospital Course: Patient is a very pleasant 59-year-old male with a past medical history of hypertension, BPH, gout, and obstructive sleep apnea CPAP dependent nightly. He presented to the emergency department with a chief complaint of shortness of breath and hemoptysis. Patient reports he just returned from an 8 day trip to [facility] last week and shortly after returning on Monday he began developing auditory symptoms since shortness of breath. Patient reports the symptoms progressively worsened and on Monday he went to the urgent care for evaluation. Patient reports he was started on a Augmentin, steroids, and inhaler with no improvement. Patient reports he has had subjective fevers, chills, diaphoresis, and productive cough. Patient reports today that shortness of breath has worsened and has been accompanied by multiple episodes of hemoptysis so he came to the hospital for further evaluation. Patient reports that his also has similar symptoms but that her started after he developed his and has not reached the severity of his as of yet. He denies having any known exposure to TB, reports staying in a condo in [facility], and visiting/exploring's a [email or web address]. Upon arrival to our facility, patient underwent evaluation in the emergency department vital signs upon arrival show blood pressure 163/77, heart rate 80, respiratory rate 18,. Temp 97.9 F, and SpO2 of 97% on room air. EKG showing normal sinus rhythm at 79 bpm with nonspecific T wave abnormality in lateral/inferior leads. Labs completed and reviewed. CBC showing bicytopenia with hemoglobin of 12.9 and platelet count of 132. WBC count is normal at 5.92. Coagulation profile normal findings. BMP showing non-anion gap metabolic acidosis with chloride of 109, bicarb of 21, and anion gap of 10. Mild prerenal azotemia with BUN of 21. Blood glucose 123. Calcium 8.4. Magnesium 1.8. Liver profile unremarkable. Troponin 0.016. Influenza A, influenza B, RSV, and COVID PCR negative. CTA chest negative for pulmonary emboli showing patchy left upper lung field infiltrate concerning for pneumonia, likely atypical pneumonia. Due to concern for possible Tuberculosis, pulmonology and infectious disease was consulted. The patient had 2 sample sent for AFB smear and culture, both of which were negative and interferon gamma release assay test was negative. He completed course of azithromycin and IV ceftriaxone, and was transitioned from Solumedrol to methylprednisolone. He also developed A fib with RVR, and was started on IV Cardizem, PO Digoxin and metoprolol was increased to 100 mg BID. He remained in A fib with variable rates, and was started on IV amiodarone. He was then transitioned to PO amiodarone 200 mg twice daily, and converted to sinus rhythm on 10/25. Due to possible procedures, he was initially anticoagulated on a heparin drip, and this was switched to Eliquis 5 mg twice daily. The patient was discharged in stable condition. Discharge medications included Amiodarone 200 mg twice daily for 7 days, and then one tablet daily, Methylprednisolone 16 mg for 2 additional days to complete 5 days. He is to continue Dixogin and Metoprolol and is to follow up with Cardiology in 1 week for further management. Patient seen and examined at bedside. Vital signs reviewed and stable. Vitals Signs Reviewed. General: Nontoxic, no distress, appears at stated age Derm: Warm, dry Head: Atraumatic, normocephalic, symmetric Eyes: EOMI, no lid lag, anicteric sclera Mouth: No lip lesion, mucus membranes moist Cardiovascular: regular rate and rhythm, no murmur Lungs: CTA bilateral, no rhonchi, no rales, no accessory muscle use Abdominal: Soft, nontender to palpation, no guarding, no appreciable organomegaly Ext: No gross muscle atrophy, no edema, no contractures Neuro: CN II-XI grossly intact, no focal neuro deficits Psych: Alert, oriented, appropriate affect A total of 30 minutes of time were spent preparing this complex discharge summary. Patient was discharged on 10/26/2024. Patient Condition at Discharge: Fair Plan - Discharge Summary Discharge Rx Participant: No New Discharge Prescriptions: New Amiodarone [Cordarone] 200 mg PO BID 30 Days #45 tab Digoxin [Lanoxin] 125 mcg PO DAILY 30 Days #30 tab Metoprolol Succinate (ER) [Toprol XL] 100 mg PO BID 30 Days #60 tab allopurinoL [Zyloprim] 300 mg PO DAILY tab lisinopriL [Zestril] 20 mg PO HS 30 Days #30 tab Ipratropium-Albuterol Nebulize [Duoneb 0.5 mg-3 mg/3 ml Soln] 3 ml INHALATION RT-QID PRN each PRN Reason: Shortness Of Breath Or Wheezing Apixaban [Eliquis] 5 mg PO BID 30 Days #60 tab Tamsulosin [Flomax] 0.8 mg PO PC-SUPPER cap methylPREDNISolone Dose Pack [Medrol Dose Pack] 16 mg PO DAILY 2 Days #8 tab Continue Ergocalciferol (Vitamin D2) [Drisdol (GEQ) 1,250 MCG (50,000 IU)] 1,250 mcg PO SA Albuterol Inhaler [Ventolin Hfa Inhaler] 2 puff INHALATION RT-Q4H PRN PRN Reason: Shortness Of Breath Discontinued lisinopriL 40 mg PO DAILY methylPREDNISolone Dose Pack [Medrol Dose Pack] See Taper PO DIRECTED Amoxic-Pot Clav 875-125Mg [Augmentin 875-125] 1 tab PO Q12HR Metoprolol Succinate (ER) [Toprol Xl] 100 mg PO DAILY Discharge Medication List Albuterol Inhaler [Ventolin Hfa Inhaler] 2 puff INHALATION RT-Q4H PRN 10/20/24 [History] Ergocalciferol (Vitamin D2) [Drisdol (GEQ) 1,250 MCG (50,000 IU)] 1,250 mcg PO SA 10/20/24 [History] Amiodarone [Cordarone] 200 mg PO BID 30 Days #45 tab 10/26/24 [Rx] Apixaban [Eliquis] 5 mg PO BID 30 Days #60 tab 10/26/24 [Rx] Digoxin [Lanoxin] 125 mcg PO DAILY 30 Days #30 tab 10/26/24 [Rx] Ipratropium-Albuterol Nebulize [Duoneb 0.5 mg-3 mg/3 ml Soln] 3 ml INHALATION RT-QID PRN each 10/26/24 [Rx] Metoprolol Succinate (ER) [Toprol XL] 100 mg PO BID 30 Days #60 tab 10/26/24 [Rx] Tamsulosin [Flomax] 0.8 mg PO PC-SUPPER cap 10/26/24 [Rx] allopurinoL [Zyloprim] 300 mg PO DAILY tab 10/26/24 [Rx] lisinopriL [Zestril] 20 mg PO HS 30 Days #30 tab 10/26/24 [Rx] methylPREDNISolone Dose Pack [Medrol Dose Pack] 16 mg PO DAILY 2 Days #8 tab 10/26/24 [Rx] Follow up Appointment(s)/Referral(s): Owen Gregory MD [STAFF PHYSICIAN] - 1 Week Fernando Gilman MD [STAFF PHYSICIAN] - 1 Week Morris Ortega MD [Primary Care Provider] - 1-2 days Discharge Disposition: HOME SELF-CARE
--- NOTE | 2024-10-26 15:15 | P.PN ---
Subjective Progress Note Date: 10/26/24 Principal diagnosis: Reason for follow-up is pneumonia and question of TB Patient is a 59-year-old male with a past medical history significant for hypertension sleep apnea in this patient who recently came back from a trip to [facility] where he stayed for 8 days patient subsequent whelping respiratory symptoms failing outpatient Medrol Dosepak and Augmentin with a CT angiogram read by the radiologist as irregular opacity left upper lobe with differential of TB prompted this consultation. On today's evaluation that is 10/26/2024, the patient continues to be afebrile, the patient is on room air and breathing comfortably, the Pt denies having any chest pain and cough is decreased in intensity, the patient denies having any abdominal pain no vomiting or any diarrhea mention feeling better wants to go home. No new labs has been obtained today Objective - Vital Signs Vital signs: Vital Signs Temp 97.4 F L 10/26/24 08:25 Pulse 56 L 10/26/24 08:25 Resp 18 10/26/24 08:25 BP 109/64 10/26/24 08:25 Pulse Ox 97 10/26/24 08:25 FiO2 Intake & Output 10/25/24 10/26/24 10/26/24 18:59 06:59 18:59 Intake Total 260 1080 540 Balance 260 1080 540 Weight 115.7 kg 115.7 kg Intake: IV 10 Invasive Line 2 10 Intake, IV Titration 250 Amount Amiodarone 450 mg In 250 Dextrose 5% in Water 250 ml @ 0.5 MG/MIN 16.667 mls/hr IV .Q15H [facility] Rx#: [id number] Oral 1080 540 Other: Voiding Method Toilet Toilet # Voids 2 1 - Exam GENERAL DESCRIPTION: Middle aged male lying in bed in no distress RESPIRATORY SYSTEM: Unlabored breathing , decreased breath sounds at bases HEART: S1 S2 regular rate and rhythm , ABDOMEN: Soft , no tenderness EXTREMITIES: No edema feet - Labs CBC & Chem 7: 10/23/24 05:50 10/23/24 05:50 Labs: Microbiology - Last 24 Hours (Table) 10/25/24 12:29 Acid Fast Bacilli Smear - Preliminary Sputum Assessment and Plan (1) Pneumonia Current Visit: Yes Status: Acute Code(s): J18.9 - PNEUMONIA, UNSPECIFIED ORGANISM SNOMED Code(s): 142771252 Plan: 1patient presented to hospital with shortness of breath cough congestion bringing up some sputum which is blood-streaked with evidence of left upper lobe pneumonia on the CT in this patient symptom has been going on for less than a week he did have recent history of travel to [facility] however with such small duration of symptoms and no evidence of any cavitation on the CT clinically doubt TB and more likely dealing with a regular community-acquired pneumonia 2patient QuantiFERON TB Gold test came back negative and sputum AFB stain x 1 has been negative sputum culture so far negative patient has been taken off the TB isolation 3patient completed course of Rocephin and Zithromax for community-acquired pneumonia, overall doing better and no need for any antibiotic on discharge Dictation was produced using [employer] dictation software. please excuse any grammatical, word or spelling errors. Time with Patient: Less than 30
[2024-10-26 20:12] LABS: Histoplasma Abs by Mycelia, CF <1:8 (<1:8)
== END 2024-10-26 17:40 | disposition home or self-care (01) | DRG 194 ==
LOC: EC 07:47 → 4SSUR 10:08 → 3SCARD 10-21 14:33
PROVIDERS: ADMIT Student in an Organized Health Care Education/Training Program; ATTEND Student in an Organized Health Care Education/Training Program
DX: J18.9 Pneumonia, unspecified organism (principal); E87.20 Acidosis, unspecified; E66.9 Obesity, unspecified; I10 Essential (primary) hypertension; I48.0 Paroxysmal atrial fibrillation; G47.33 Obstructive sleep apnea (adult) (pediatric); N40.0 Benign prostatic hyperplasia without lower urinary tract symptoms; Z68.37 Body mass index [BMI] 37.0-37.9, adult; M10.9 Gout, unspecified; I25.10 Atherosclerotic heart disease of native coronary artery without angina pectoris; Z79.01 Long term (current) use of anticoagulants; Z79.899 Other long term (current) drug therapy; Z85.038 Personal history of other malignant neoplasm of large intestine; Z90.49 Acquired absence of other specified parts of digestive tract
CPT/HCPCS: 36415; 71045; 71275; 80053; 83735; 84443; 84484; 85025; 85027; 85610; 85730; 86480; 86698; 86738; 87070; 87116; 87205; 87206; 87449; 87636; 93005; 93306; 96374; 96375; 99285

== ENCOUNTER 2024-11-16 12:02 | Emergency (ER) | payer BC ==
--- NOTE | 2024-11-16 12:29 | ED ---
General Adult HPI - General Chief complaint: Fall Stated complaint: Head injury on thinner Time Seen by Provider: 11/16/24 12:17 Source: patient, RN notes reviewed, old records reviewed Mode of arrival: ambulatory Limitations: no limitations - History of Present Illness Initial comments: 59-year-old male presenting for evaluation of head injury which occurred on Monday evening. Patient is on Eliquis with recent diagnosis of atrial fibrillation. He states he has had a headache and some dizziness since the injury. He states that a window fell and hit him on the top of the head. No focal numbness or weakness. - Related Data Home Medications Medication Instructions Recorded Confirmed Albuterol Inhaler [Ventolin Hfa 2 puff INHALATION RT-Q4H PRN 10/20/24 10/20/24 Inhaler] Ergocalciferol (Vitamin D2) 1,250 mcg PO SA 10/20/24 10/20/24 [Drisdol (GEQ) 1,250 MCG (50,000 IU)] Previous Rx's Medication Instructions Recorded Amiodarone [Cordarone] 200 mg PO BID 30 Days #45 tab 10/26/24 Apixaban [Eliquis] 5 mg PO BID 30 Days #60 tab 10/26/24 Digoxin [Lanoxin] 125 mcg PO DAILY 30 Days #30 tab 10/26/24 Ipratropium-Albuterol Nebulize 3 ml INHALATION RT-QID PRN each 10/26/24 [Duoneb 0.5 mg-3 mg/3 ml Soln] Metoprolol Succinate (ER) [Toprol 100 mg PO BID 30 Days #60 tab 10/26/24 XL] Tamsulosin [Flomax] 0.8 mg PO PC-SUPPER cap 10/26/24 allopurinoL [Zyloprim] 300 mg PO DAILY tab 10/26/24 lisinopriL [Zestril] 20 mg PO HS 30 Days #30 tab 10/26/24 methylPREDNISolone Dose Pack 16 mg PO DAILY 2 Days #8 tab 10/26/24 [Medrol Dose Pack] Allergies Allergy/AdvReac Type Severity Reaction Status Date / Time No Known Allergies Allergy Verified 11/16/24 12:16 Review of Systems ROS Statement: Those systems with pertinent positive or pertinent negative responses have been documented in the HPI. ROS Other: All systems not noted in ROS Statement are negative. Past Medical History Past Medical History: Hypertension, Sleep Apnea/CPAP/BIPAP Additional Past Medical History / Comment(s): Gout History of Any Multi-Drug Resistant Organisms: None Reported Past Surgical History: Orthopedic Surgery Additional Past Surgical History / Comment(s): left knee surgery Past Anesthesia/Blood Transfusion Reactions: No Reported Reaction Past Psychological History: No Psychological Hx Reported Smoking Status: Never smoker Past Alcohol Use History: None Reported Past Drug Use History: None Reported - Past Family History Mother Family Medical History: Hypertension General Exam Limitations: no limitations General appearance: alert, in no apparent distress Head exam: Present: atraumatic, normocephalic Eye exam: Present: normal appearance, PERRL ENT exam: Present: normal exam Neck exam: Present: normal inspection. Absent: tenderness, meningismus Respiratory exam: Present: normal lung sounds bilaterally. Absent: respiratory distress, wheezes Cardiovascular Exam: Present: regular rate, normal rhythm GI/Abdominal exam: Present: soft. Absent: distended, tenderness, guarding Extremities exam: Present: normal inspection, normal capillary refill. Absent: pedal edema Neurological exam: Present: alert, oriented X3, CN II-XII intact. Absent: motor sensory deficit Psychiatric exam: Present: normal affect, normal mood Skin exam: Present: warm, dry, intact. Absent: cyanosis, diaphoretic Course Vital Signs 11/16/24 12:10 Temperature 97.9 F Pulse Rate 53 L Respiratory 16 Rate Blood Pressure 123/66 O2 Sat by Pulse 95 Oximetry Medical Decision Making - Medical Decision Making Was pt. sent in by a medical professional or institution (, PA, [employer]SEM[employer], urgent care, hospital, or prison...) When possible be specific @ -No Did you speak to anyone other than the patient for history (EMS, parent, family, police, friend...)? What history was obtained from this source @ -No Did you review nursing and triage notes (agree or disagree)? Why? @ -I reviewed and agree with nursing and triage notes Were old charts reviewed (outside hosp., previous admission, EMS record, old EKG, old radiological studies, urgent care reports/EKG's, prison records)? Report findings @ -No old charts were reviewed Differential Diagnosis concussion, intracranial hemorrhage, skull fracture EKG interpreted by me (3pts min.). @ -As above X-rays interpreted by me (1pt min.). @ -None done CT interpreted by me (1pt min.). @ -CT brain is negative for intracranial hemorrhage or mass effect U/S interpreted by me (1pt. min.). @ -None done What testing was considered but not performed or refused? (CT, X-rays, U/S, labs)? Why? @ -None What meds were considered but not given or refused? Why? @ -None Did you discuss the management of the patient with other professionals (professionals i.e. , PA, [employer], lab, RT, psych nurse, 7th grade social studies teacher, assembler bonding, teacher, officer lieutenant, block and case maker)? Give summary @ -No Was smoking cessation discussed for >3mins.? @ -No Was critical care preformed (if so, how long)? @ -No Were there social determinants of health that impacted care today? How? (Homelessness, low income, unemployed, alcoholism, drug addiction, transportation, low edu. Level, literacy, decrease access to med. care, assisted, rehab)? @ -No Was there de-escalation of care discussed even if they declined (Discuss DNR or withdrawal of care, Hospice)? DNR status @ -No What co-morbidities impacted this encounter? (DM, HTN, Smoking, COPD, CAD, Cancer, CVA, ARF, Chemo, Hep., AIDS, mental health diagnosis, sleep apnea, morbid obesity)? @ -None Was patient admitted / discharged? Hospital course, mention meds given and route, prescriptions, significant lab abnormalities, going to OR and other pertinent info. @ -59-year-old male with head injury on Eliquis, patient does have some dizziness, persistent headache. Head CT is performed which is negative for int racranial hemorrhage or mass effect. Patient reassured. Request follow-up with her primary care provider regarding ongoing symptoms. Stable for discharge. Undiagnosed new problem with uncertain prognosis? @ -No Drug Therapy requiring intensive monitoring for toxicity (Heparin, Nitro, Insulin, Cardizem)? @ -No Were any procedures done? @ -No Diagnosis/symptom? @Concussion Acute, or Chronic, or Acute on Chronic? @ acute Uncomplicated (without systemic symptoms) or Complicated (systemic symptoms)? @ - Side effects of treatment? @ -No Exacerbation, Progression, or Severe Exacerbation? @ -No Poses a threat to life or bodily function? How? (Chest pain, USA, OR, pneumonia, PE, COPD, DKA, ARF, appy, cholecystitis, CVA, Diverticulitis, Homicidal, Suicidal, threat to staff... and all critical care pts) @ -No Disposition Clinical Impression: Concussion Disposition: HOME SELF-CARE Condition: Fair Instructions (If sedation given, give patient instructions): Concussion (ED) Is patient prescribed a controlled substance at d/c from ED?: No Referrals: Morris Ortega MD [Primary Care Provider] - 1-2 days Time of Disposition: 13:20
--- NOTE | 2024-11-16 13:04 | CT ---
EXAMINATION TYPE: CT brain wo con DATE OF EXAM: 11/16/2024 COMPARISON: CLINICAL INDICATION: Male, 59 years old with history of head injury on eliquis; [facility], Head injury neris ral days ago on eliquis. C/o dizziness, CT DLP: 1230.4 mGycm Automated exposure control for dose reduction was used. Non Findings: The ventricles, basal cisterns and sulci over the convexities are within normal limits for the patien t's age and there is no mass effect or shift of midline structures. No abnormal density is seen throughout the brain parenchyma and there is no acute intra or extra-axia l hemorrhage. The posterior fossa including the brainstem, fourth ventricle and cerebellar pontine angles appear no rmal. Intraorbital contents appear normal and symmetric. Visualized paranasal sinuses and mastoid air cells are well aerated. The calvarium is intact. IMPRESSION: No significant abnormality seen. There is no acute bleed or mass effect. [facility], , 11/16/2024 1:02 PM
[2024-11-16 13:26] VITALS: BP 130/72; PULSE 50; RESP 20; TEMP 98
== END 2024-11-16 13:24 | disposition home or self-care (01) ==
LOC: EC 12:02
DX: S06.0X0A Concussion without loss of consciousness, initial encounter (principal); R40.2410 Glasgow coma scale score 13-15, unspecified time; W20.8XXA Other cause of strike by thrown, projected or falling object, initial encounter
CPT/HCPCS: 70450; 99283